=== PATIENT | male | born 1960 | race Caucasian/White ===

== ENCOUNTER → 2016-12-28 | Outpatient (CLI) | payer MEDICARE, MEDICAID | LOC: MW.CHFP 10:54 | PROVIDERS: ATTEND Student in an Organized Health Care Education/Training Program | DX: E78.1 Pure hyperglyceridemia (principal); Z53.9 Procedure and treatment not carried out, unspecified reason; I10 Essential (primary) hypertension | CPT/HCPCS: G0463 ==

== ENCOUNTER → 2016-12-29 | Outpatient (CLI) | payer MEDICARE, MEDICAID | LOC: MW.CHFP 08:59 | PROVIDERS: ATTEND Student in an Organized Health Care Education/Training Program | DX: E78.1 Pure hyperglyceridemia (principal) | CPT/HCPCS: 36415; 80061 ==

== ENCOUNTER 2021-05-07 21:00 | Emergency (ER) | payer MEDICARE ==
[2021-05-07] MEDS ORDERED: Sodium Chloride 0.9% 2.5 ML Syringe FLUSH PRN (21:22)
[2021-05-07] MEDS ORDERED: Sodium Chloride 0.9% 10 ML Syringe FLUSH PRN (21:22)
[2021-05-07] MEDS ORDERED: Sodium Chloride 0.9% 1,000 ML IV ONE (21:22)
[2021-05-07 21:43] LABS: BLOOD UREA NITROGEN,BUN 22 mg/dL (7.0-18.0); CARBON DIOXIDE,CO2 21.4 mmol/L (21.0-32.0); CHLORIDE,CL 107 mmol/L (98-107); GLUCOSE RANDOM 146 mg/dL (74-106); POTASSIUM,K 4.2 mmol/L (3.5-5.1); SODIUM,NA 143 mmol/L (136-148)
--- NOTE | 2021-05-07 22:13 | CR ---
For Patients: As a result of the Cures Act, medical imaging exams and procedure reports are released immediately into your electronic medical record. You may view this report before your referring provider. If you have questions, please contact your health care provider. INDICATION: Syncope TECHNIQUE: Chest radiograph 1 view COMPARISON: None FINDINGS: Moderate degradation of image quality noted due to body habitus. Mediastinum: The mediastinum is normal in appearance. There is a convex density in the right cardiophrenic sulcus noted, likely due to a pericardial fat pad. The heart silhouette is normal in size and morphology. Lung: Both lungs are unremarkable in appearance with small lung volumes. No sign of pleural effusion seen. No pneumothorax is identified. Bone and Soft tissue: Unremarkable for age. IMPRESSION: 1. No acute cardiopulmonary disease is seen. Dictated by Aram Hammond MD @ 05/07/2021 10:11:40 PM Dictated by: Aram Hammond MD @ 05/07/2021 22:11:47 (Electronically Signed)
--- NOTE | 2021-05-07 23:12 | CT ---
For Patients: As a result of the Cures Act, medical imaging exams and procedure reports are released immediately into your electronic medical record. You may view this report before your referring provider. If you have questions, please contact your health care provider. INDICATION: Head injury, confusion TECHNIQUE: CT Head without i.v. contrast. Coronal and sagittal reformats were obtained. COMPARISON: None FINDINGS: CSF space: The ventricles are normal for age. Brain: No evidence of mass, acute infarction or hemorrhage is seen. No mass-effect or midline shift is seen. Moderate cerebellar atrophy is present. The brain parenchyma is otherwise normal in appearance with preservation of the [place]-white matter junction. Calvarium: The visualized paranasal sinuses are well aerated. The mastoid air cells are clear. The visualized orbits are grossly unremarkable. The calvarium is unremarkable in appearance with no fractures identified. IMPRESSION: 1. No evidence of acute infarction, intracranial hemorrhage, or mass-effect seen. Please note that all CT scans at this facility use dose modulation, iterative reconstruction, and/or weight-based dosing when appropriate to reduce radiation dose to as low as reasonably achievable. Dictated by: Aram Hammond MD @ 05/07/2021 23:11:52 (Electronically Signed)
--- NOTE | 2021-05-07 23:23 | EDM.PDOC ---
ED HPI GENERAL MEDICAL PROBLEM - General Chief Complaint: General Stated Complaint: ALTERED MENTAL STATUS Time Seen by Provider: 05/07/21 21:21 - History of Present Illness INITIAL COMMENTS - FREE TEXT/NARRATIVE: HISTORY AND PHYSICAL: History of present illness: This is a 61-year-old gentleman with a history significant for coronary disease, dyslipidemia, bipolar affective disorder who presents ER today by police secondary to patient having confusion and giving them the wrong home address after falling in the parking lot at [facility] and hurting his head. Upon arrival to the ED, the patient the patient reports that he recalls falling at [facility] from tripping on the ground and hitting his head. Patient reports he did not pass out and recalls the injury. After that, the patient reports that he did have some confusion does not recall exactly how he ended up here in the hospital. Patient denies any other complaints at this time. Patient reports she is ambulatory without any pain or discomfort. Patient denies any pain to his lower extremities or upper extremities. Patient does have some pain and discomfort to his left hand from the fall. Review of systems: As per history of present illness and below otherwise all systems reviewed and negative. Past medical history: As per history of present illness and as reviewed below otherwise noncontributory. Surgical history: As per history of present illness and as reviewed below otherwise noncontributory. Social history: No reported history of drug abuse. Family history: As per history of present illness and as reviewed below otherwise noncontributory. Physical exam: This patient was seen and evaluated during the 2019 SARS-CoV-2 novel coronavirus pandemic period. Community viral transmission is ongoing at time of this encounter and the emergency department is operating under pandemic response procedures. Constitutional: Patient is oriented to person, place, and time. Appears well- developed and well-nourished. No distress. HEENT: Moist mucous membranes Head: Normocephalic and atraumatic Eyes: Right eye exhibits no discharge. Left eye exhibits no discharge. No scleral icterus Neck: Normal range of motion. No tracheal deviation present. Cardiovascular: Normal rate and regular rhythm. Pulmonary: Effort normal, no respiratory distress. Abdominal: No distention Musculoskeletal: Normal range of motion Neurologic: Alert and oriented to person, place and time. Skin: [place], warm and dry. Psychiatric: Normal mood and affect. Behavior is normal. Judgment and thought content normal. Nursing note and vital signs have been reviewed Patient has no C-spine T-spine or L-spine tenderness to palpation. Patient has no left upper or right upper quadrant tenderness to palpation. Patient has no crepitus to palpation to the anterior chest wall. Patient is neurologically intact. Patient does not present with any signs or or symptoms that would be consistent with acute intracranial, intra-abdominal, intrathoracic, or long bone injury. All long bones have been palpated and range of motion been performed and there is no evidence of any acute pathology. Patient does have some soft tissue swelling and a superficial abrasion to his left forehead. Patient has had some soft tissue swelling and ecchymosis to his left hand. Diagnostics: CT head no evidence of acute bleed or fracture CBC, CMP within normal limits Urinalysis normal no active infection Therapeutics: NSS x1 L Assessment and plan: This is a 61-year-old gentleman who presents ER today secondary to confusion. It appears that the patient does have some baseline mental health issues and appears to be at baseline currently. Patient does not have his cell phone with him at this time. Patient is alert awake and oriented to person, place, year and month. At this time, I feel that the patient is back to his baseline mentation. Patient has given me his correct address. We will have please assist with verifying that this is truly his address. I have called all the numbers that we have for him and there've been no answers. Patient reports that he has no friends and does not recall any phone numbers of any particular individuals. Patient reports he does have a cell phone but does not have it with him here in the ED. X-ray of left hand shows an irregular border over the fifth metacarpal in 1 view. Patient be placed in a volar splint for comfort. I do not believe that this is an actual fracture as the patient has no tenderness at that specific spot. After long discussion with the patient, I was able to identify his place of residence and place her here in order to assist with discharge. Definitive disposition and diagnosis as appropriate pending reevaluation and review of above. - Related Data Allergies Allergy/AdvReac Type Severity Reaction Status Date / Time phenytoin sodium Allergy Unknown Verified 05/07/21 21:11 [From Dilantin] Home Meds: Home Meds ARIPiprazole [Abilify] 5 mg PO DAILY 10/30/14 [History] Aspirin [[place] Aspirin EC] 81 mg PO DAILY 10/30/14 [History] FLUoxetine HCl [Fluoxetine HCl] 40 mg PO DAILY 10/30/14 [History] Mirtazapine 30 mg PO BEDTIME 10/30/14 [History] Rosuvastatin [Crestor] 20 mg PO DAILY 10/30/14 [History] Past Medical History HEENT History: Reports: None Cardiovascular History: Reports: None Respiratory History: Reports: None Gastrointestinal History: Reports: None Genitourinary History: Reports: None Musculoskeletal History: Reports: None Neurological History: Reports: None Psychiatric History: Reports: Depression Endocrine/Metabolic History: Reports: None Insulin Pump Model and Hand Candy Dipper: None Hematologic History: Reports: None Immunologic History: Reports: None Oncologic (Cancer) History: Reports: None Dermatologic History: Reports: None - Infectious Disease History Infectious Disease History: Reports: None - Past Surgical History Head Surgeries/Procedures: Reports: None Social & Family History - Tobacco Use Second Hand Smoke Exposure: No - Caffeine Use Caffeine Use: Reports: Coffee - Recreational Drug Use Recreational Drug Use: No ED ROS GENERAL - Review of Systems Review Of Systems: See Below ED EXAM, GENERAL - Physical Exam Exam: See Below Course - Vital Signs Last Recorded V/S: Last Vital Signs Temp 98.1 F 05/07/21 21:00 Pulse 91 05/08/21 01:03 Resp 20 05/08/21 01:03 BP 143/76 H 05/08/21 01:03 Pulse Ox 95 05/08/21 01:03 - Orders/Labs/Meds Orders: Active Orders 24 hr Category Date Time Status Chest 1V Frontal [CR] Stat Exams 05/07/21 21:22 Ordered Hand Comp Min 3V Lt [CR] Stat Exams 05/08/21 00:44 Ordered Head wo Cont [CT] Stat Exams 05/07/21 21:24 Ordered CBC WITH AUTO DIFF [HEME] Stat Lab 05/07/21 21:22 Ordered COMPREHENSIVE METABOLIC PN,CMP [CHEM] Stat Lab 05/07/21 21:22 Ordered ETHANOL BLOOD MEDICAL [CHEM] Stat Lab 05/07/21 21:22 Ordered INR,PT,PROTHROMBIN TIME [COAG] Stat Lab 05/07/21 21:22 Ordered TROPONIN I [CHEM] Stat Lab 05/07/21 21:22 Ordered Lactated Ringers [Ringers, Lactated] 1,000 ml Med 05/07/21 23:30 Ordered IV .BOLUS Sodium Chloride 0.9% [Normal Saline] 1,000 ml Med 05/07/21 21:22 Ordered IV .Bolus Sodium Chloride 0.9% [Saline Flush] Med 05/07/21 21:22 Ordered 10 ml FLUSH ASDIRECTED PRN Sodium Chloride 0.9% [Saline Flush] Med 05/07/21 21:22 Ordered 2.5 ml FLUSH ASDIRECTED PRN DME for Discharge [COMM] Stat Ot 05/08/21 01:08 Ordered Saline Lock Insert [OM.PC] Stat Ot 05/07/21 21:22 Ordered Medication Orders Sodium Chloride (Normal Saline) 1,000 mls @ 999 mls/hr IV .Bolus ONE Stop: 05/07/21 22:22 Last Admin: 05/07/21 21:30 Dose: 999 mls/hr Documented by: CARERIC Sodium Chloride (Sodium Chloride 0.9% 10 Ml Syringe) 10 ml FLUSH ASDIRECTED PRN PRN Reason: Keep Vein Open Sodium Chloride (Sodium Chloride 0.9% 2.5 Ml Syringe) 2.5 ml FLUSH ASDIRECTED PRN PRN Reason: Keep Vein Open Labs: Laboratory Tests 05/07/21 05/07/21 05/07/21 Range/Units 21:13 21:13 21:13 WBC 11.33 H (4.0-11.0) K/uL RBC 4.84 (4.50-5.90) M/uL Hgb 15.4 (13.0-17.0) g/dL Hct 44.8 (38.0-50.0) % MCV 92.6 (80.0-98.0) fL MCH 31.8 (27.0-32.0) pg MCHC 34.4 (31.0-37.0) g/dL RDW Std Deviation 44.9 (28.0-62.0) fl RDW Coeff of [place] 13 (11.0-15.0) % Plt Count 224 (150-400) K/uL MPV 12.00 (7.40-12.00) fL Neut % (Auto) 82.8 H (48.0-80.0) % Lymph % (Auto) 11.3 L (16.0-40.0) % [place] % (Auto) 4.5 (0.0-15.0) % Eos % (Auto) 1.1 (0.0-7.0) % Baso % (Auto) 0.3 (0.0-1.5) % Neut # (Auto) 9.4 H (1.4-5.7) K/uL Lymph # (Auto) 1.3 (0.6-2.4) K/uL [place] # (Auto) 0.5 (0.0-0.8) K/uL Eos # (Auto) 0.1 (0.0-0.7) K/uL Baso # (Auto) 0.0 (0.0-0.1) K/uL Nucleated RBC % 0.0 /100WBC Nucleated RBCs # 0 K/uL INR 1.06 Sodium 143 (136-148) mmol/L Potassium 4.2 (3.5-5.1) mmol/L Chloride 107 (98-107) mmol/L Carbon Dioxide 21.4 (21.0-32.0) mmol/L BUN 22 H (7.0-18.0) mg/dL Creatinine 1.8 H (0.8-1.3) mg/dL Est Cr Clr Drug Dosing 41.31 mL/min Estimated GFR (MDRD) 38.8 ml/min Glucose 146 H (74-106) mg/dL Calcium 9.2 (8.5-10.1) mg/dL Total Bilirubin 1.1 H (0.2-1.0) mg/dL AST 25 (15-37) IU/L ALT 28 (14-63) IU/L Alkaline Phosphatase 64 (46-116) U/L Troponin I < 0.050 (0.000-0.056) ng/mL Total Protein 7.3 (6.4-8.2) g/dL Albumin 4.0 (3.4-5.0) g/dL Globulin 3.3 (2.6-4.0) g/dL Albumin/Globulin Ratio 1.2 (0.9-1.6) Urine Color Urine Appearance Urine pH (5.0-8.0) Ur Specific [place] (1.001-1.035) Urine Protein (NEGATIVE) mg/dL Urine Glucose (UA) (NEGATIVE) mg/dL Urine Ketones (NEGATIVE) mg/dL Urine Occult Blood (NEGATIVE) Urine Nitrite (NEGATIVE) Urine Bilirubin (NEGATIVE) Urine Urobilinogen (<2.0) EU/dL Ur Leukocyte Esterase (NEGATIVE) Urine RBC (0-2/HPF) Urine WBC (0-5/HPF) Ur Epithelial Cells (NONE-FEW) Urine Bacteria (NEGATIVE) Urine Mucus (NONE-MOD) Ethyl Alcohol <3 mg/dL 05/07/21 Range/Units 23:27 WBC (4.0-11.0) K/uL RBC (4.50-5.90) M/uL Hgb (13.0-17.0) g/dL Hct (38.0-50.0) % MCV (80.0-98.0) fL MCH (27.0-32.0) pg MCHC (31.0-37.0) g/dL RDW Std Deviation (28.0-62.0) fl RDW Coeff of [place] (11.0-15.0) % Plt Count (150-400) K/uL MPV (7.40-12.00) fL Neut % (Auto) (48.0-80.0) % Lymph % (Auto) (16.0-40.0) % [place] % (Auto) (0.0-15.0) % Eos % (Auto) (0.0-7.0) % Baso % (Auto) (0.0-1.5) % Neut # (Auto) (1.4-5.7) K/uL Lymph # (Auto) (0.6-2.4) K/uL [place] # (Auto) (0.0-0.8) K/uL Eos # (Auto) (0.0-0.7) K/uL Baso # (Auto) (0.0-0.1) K/uL Nucleated RBC % /100WBC Nucleated RBCs # K/uL INR Sodium (136-148) mmol/L Potassium (3.5-5.1) mmol/L Chloride (98-107) mmol/L Carbon Dioxide (21.0-32.0) mmol/L BUN (7.0-18.0) mg/dL Creatinine (0.8-1.3) mg/dL Est Cr Clr Drug Dosing mL/min Estimated GFR (MDRD) ml/min Glucose (74-106) mg/dL Calcium (8.5-10.1) mg/dL Total Bilirubin (0.2-1.0) mg/dL AST (15-37) IU/L ALT (14-63) IU/L Alkaline Phosphatase (46-116) U/L Troponin I (0.000-0.056) ng/mL Total Protein (6.4-8.2) g/dL Albumin (3.4-5.0) g/dL Globulin (2.6-4.0) g/dL Albumin/Globulin Ratio (0.9-1.6) Urine Color YELLOW Urine Appearance SLT CLOUDY Urine pH 5.5 (5.0-8.0) Ur Specific [place] >= 1.030 (1.001-1.035) Urine Protein TRACE H (NEGATIVE) mg/dL Urine Glucose (UA) NEGATIVE (NEGATIVE) mg/dL Urine Ketones TRACE H (NEGATIVE) mg/dL Urine Occult Blood LARGE H (NEGATIVE) Urine Nitrite NEGATIVE (NEGATIVE) Urine Bilirubin NEGATIVE (NEGATIVE) Urine Urobilinogen 0.2 (<2.0) EU/dL Ur Leukocyte Esterase NEGATIVE (NEGATIVE) Urine RBC 10-15 (0-2/HPF) Urine WBC 1-3 (0-5/HPF) Ur Epithelial Cells FEW (NONE-FEW) Urine Bacteria FEW (NEGATIVE) Urine Mucus MODERATE (NONE-MOD) Ethyl Alcohol mg/dL Meds: Medications Generic Name Dose Route Start Last Admin Trade Name Freq PRN Reason Stop Dose Admin Sodium Chloride 1,000 mls @ 999 mls/hr 05/07/21 21:22 05/07/21 21:30 Normal Saline IV 05/07/21 22:22 999 mls/hr .Bolus ONE Administration Sodium Chloride 10 ml 05/07/21 21:22 Sodium Chloride 0.9% 10 Ml Syringe FLUSH ASDIRECTED PRN Keep Vein Open Sodium Chloride 2.5 ml 05/07/21 21:22 Sodium Chloride 0.9% 2.5 Ml Syringe FLUSH ASDIRECTED PRN Keep Vein Open Departure - Departure Time of Disposition: 00:47 Disposition: Home, Self-Care 01 Condition: Good Clinical Impression: Head injury Qualifiers: Encounter type: initial encounter Qualified Code(s): S09.90XA - Unspecified injury of head, initial encounter Hand sprain Qualifiers: Encounter type: initial encounter Laterality: left Qualified Code(s): S63.92XA - Sprain of unspecified part of left wrist and hand, initial encounter - Discharge Information Instructions: Head Injury, Adult Referrals: PCP,None [Primary Care Provider] - Forms: ED Department Discharge Additional Instructions: You were seen and evaluated in the ER today secondary to head injury and some confusion. Please go home and get plenty of rest and call your family doctor in the morning for further evaluation. Please keep the splint in place until you are pain-free. The following information is given to patients seen in the emergency department who are being discharged to home. This information is to outline your options for follow-up care. We provide all patients seen in our emergency department with a follow-up referral. The need for follow-up, as well as the timing and circumstances, are variable depending upon the specifics of your emergency department visit. If you don't have a primary care physician on staff, we will provide you with a referral. We always advise you to contact your personal physician following an emergency department visit to inform them of the circumstance of the visit and for follow-up with them and/or the need for any referrals to a consulting specialist. The emergency department will also refer you to a specialist when appropriate. This referral assures that you have the opportunity for follow-up care with a specialist. All of these measure are taken in an effort to provide you with optimal care, which includes your follow-up. Under all circumstances we always encourage you to contact your private physician who remains a resource for coordinating your care. When calling for follow-up care, please make the office aware that this follow-up is from your recent emergency room visit. If for any reason you are refused follow-up, please contact the [facility] Emergency Department at and asked to speak to the emergency department charge nurse. [facility] - [facility] [address] [place] [id number] [facility] [address] [place] [id number] Sepsis Event Note (ED) - Evaluation Sepsis Screening Result: No Definite Risk - Focused Exam Vital Signs: Vital Signs Temp Pulse Resp BP Pulse Ox 05/08/21 01:03 91 20 143/76 H 95 05/08/21 00:03 85 14 95/75 96 05/07/21 21:00 98.1 F 82 18 116/54 L 95 - My Orders Last 24 Hours: My Active Orders 05/07/21 21:22 Chest 1V Frontal [CR] Stat CBC WITH AUTO DIFF [HEME] Stat COMPREHENSIVE METABOLIC PN,CMP [CHEM] Stat ETHANOL BLOOD MEDICAL [CHEM] Stat INR,PT,PROTHROMBIN TIME [COAG] Stat TROPONIN I [CHEM] Stat Sodium Chloride 0.9% [Normal Saline] 1,000 ml IV .Bolus Sodium Chloride 0.9% [Saline Flush] 10 ml FLUSH ASDIRECTED PRN Sodium Chloride 0.9% [Saline Flush] 2.5 ml FLUSH ASDIRECTED PRN Saline Lock Insert [OM.PC] Stat 05/07/21 21:24 Head wo Cont [CT] Stat 05/07/21 23:30 Lactated Ringers [Ringers, Lactated] 1,000 ml IV .BOLUS 05/08/21 00:44 Hand Comp Min 3V Lt [CR] Stat 05/08/21 01:08 DME for Discharge [COMM] Stat - Assessment/Plan Last 24 Hours: My Active Orders 05/07/21 21:22 Chest 1V Frontal [CR] Stat CBC WITH AUTO DIFF [HEME] Stat COMPREHENSIVE METABOLIC PN,CMP [CHEM] Stat ETHANOL BLOOD MEDICAL [CHEM] Stat INR,PT,PROTHROMBIN TIME [COAG] Stat TROPONIN I [CHEM] Stat Sodium Chloride 0.9% [Normal Saline] 1,000 ml IV .Bolus Sodium Chloride 0.9% [Saline Flush] 10 ml FLUSH ASDIRECTED PRN Sodium Chloride 0.9% [Saline Flush] 2.5 ml FLUSH ASDIRECTED PRN Saline Lock Insert [OM.PC] Stat 05/07/21 21:24 Head wo Cont [CT] Stat 05/07/21 23:30 Lactated Ringers [Ringers, Lactated] 1,000 ml IV .BOLUS 05/08/21 00:44 Hand Comp Min 3V Lt [CR] Stat 05/08/21 01:08 DME for Discharge [COMM] Stat
[2021-05-07] MEDS ORDERED: Lactated Ringers 1,000 ML IV SCH (23:30)
[2021-05-08 01:04] VITALS: BP 143/76; PULSE 91
--- NOTE | 2021-05-08 01:26 | CR ---
For Patients: As a result of the Cures Act, medical imaging exams and procedure reports are released immediately into your electronic medical record. You may view this report before your referring provider. If you have questions, please contact your health care provider. INDICATION: Hand pain TECHNIQUE: Hand radiograph 3 views left COMPARISON: None FINDINGS: Bone: There is suspected cortical discontinuity the radial base of the 5th metacarpal, only seen on the frontal view. There is negative ulnar variance present by up to 4 mm. Joint: The carpal and metacarpal-phalangeal joints are unremarkable in appearance. The interphalangeal joints are normal in appearance. Soft tissue: Unremarkable. No radiopaque foreign bodies are seen. IMPRESSION: 1. There is suspected cortical discontinuity the radial base of the 5th metacarpal, only seen on the frontal view. If there is a history of trauma, correlation with physical exam for focal tenderness in this region is recommended to exclude an acute fracture. Dictated by Aram Hammond MD @ 05/08/2021 1:22:42 AM Dictated by: Aram Hammond MD @ 05/08/2021 01:25:28 (Electronically Signed)
== END 2021-05-08 01:15 | disposition home or self-care (01) ==
LOC: MW.ED 21:00
DX: S63.92XA Sprain of unspecified part of left wrist and hand, initial encounter (principal); S09.90XA Unspecified injury of head, initial encounter; I25.10 Atherosclerotic heart disease of native coronary artery without angina pectoris; E87.5 Hyperkalemia; Z79.899 Other long term (current) drug therapy; Z88.8 Allergy status to other drugs, medicaments and biological substances; Z79.82 Long term (current) use of aspirin; W18.09XA Striking against other object with subsequent fall, initial encounter
CPT/HCPCS: 36415; 70450; 71045; 73130; 80053; 80307; 81001; 84484; 85025; 85610; 99285; J7030; J7120

== ENCOUNTER 2021-06-08 17:16 | Inpatient (IN) | payer MEDICARE ==
--- NOTE | 2021-06-08 17:34 | PCM.EKG ---
#1 Interpretation Time: 17:34 EKG Interpretation Comments: 74, normal sinus rhythm, nonspecific ST/T findings
[2021-06-08] MEDS ORDERED: Sodium Chloride 0.9% 1,000 ML IV ONE (17:39)
[2021-06-08] MEDS ORDERED: Diphtheria,Pertussis(Acell),Tetanus Vaccine 0.5 ML Syringe IM ONE (17:40)
[2021-06-08 17:48] LABS: CHLORIDE,CL 106 mmol/L (98-107); POTASSIUM,K 4.6 mmol/L (3.5-5.1); SODIUM,NA 142 mmol/L (136-148)
[2021-06-08 18:04] LABS: BLOOD UREA NITROGEN,BUN 26 mg/dL (7.0-18.0); CARBON DIOXIDE,CO2 24.5 mmol/L (21.0-32.0); GLUCOSE RANDOM 103 mg/dL (74-106)
--- NOTE | 2021-06-08 18:31 | EDM.PDOC ---
ED HPI GENERAL MEDICAL PROBLEM - General Chief Complaint: Cardiovascular Problem Stated Complaint: FALL Time Seen by Provider: 06/08/21 17:22 Source of Information: Reports: Patient History Limitations: Reports: No Limitations - History of Present Illness INITIAL COMMENTS - FREE TEXT/NARRATIVE: HISTORY AND PHYSICAL: History of present illness: Patient is a 61-year-old male who presents emergency room today via EMS for concern of fall. Patient states that he was outside walking and was starting to walk up to his door and states that he started tripping over his feet and could not catch himself. Patient states that he hit his top lip on the cement concrete. Patient states that he did not lose consciousness and was not dizzy preceding the fall. Patient states that he has had a fall like this before approximately 1 month ago and was "told it was fine "after he had a evaluated prior. Patient states that he is not up-to-date on his tetanus and would like to update this today. Patient states he has a history of bipolar disorder but denies any other health history. Patient states other than his upper lip, he has no complaints at this time. Patient denies fever, chills, chest pain, shortness of breath, or cough. Denies headache, neck stiff ness, change in vision, syncope, or near syncope. Denies nausea, vomiting, abdominal pain, diarrhea, constipation, or dysuria. Has not noted any blood in urine or stool. Patient has been eating and drinking appropriately. Review of systems: As per history of present illness and below otherwise all systems reviewed and negative. Past medical history: As per history of present illness and as reviewed below otherwise noncontributory. Surgical history: As per history of present illness and as reviewed below otherwise noncontributory. Social history: See social history for further information Family history: As per history of present illness and as reviewed below otherwise noncontributory. Physical exam: Patient was placed in cervical collar via EMS prior to arrival to the emergency room. General: Patient is alert, oriented, and in no acute distress. Patient sitting comfortably on exam table. Vitals stable and reviewed by me. HEENT: Patient does have a upper lip abrasion. Patient does have some ecchymosis noted of the left cheek. Otherwise, atraumatic, normocephalic, pupils equal and reactive bilaterally, negative for conjunctival pallor or scleral icterus, mucous membranes moist, TMs normal bilaterally, throat clear, neck supple, nontender, trachea midline. No drooling or trismus noted. No meningeal signs. No hot potato voice noted. Lungs: Clear to auscultation, breath sounds equal bilaterally, chest nontender. Heart: S1S2, regular rate and rhythm without overt murmur Abdomen: Soft, nondistended, nontender. Negative for masses or hepatosplenomegaly. Negative for costovertebral tenderness. Pelvis: Stable nontender. Genitourinary: Deferred. Rectal: Deferred. Skin: Intact, warm, dry. No lesions or rashes noted. Extremities/musculoskeletal: No obvious deformity of the complete spine. No step-offs, or crepitus to palpation of the complete spine. Patient does have an area of mild to tenderness of the middle cervical spine. Patient does have some superficial nonbleeding abrasions of bilateral knees without ecchymosis. Otherwise, atraumatic, negative for cords or calf pain. Neurovascular unremarkable. Neuro: Awake, alert, oriented. Cranial nerves II through XII unremarkable. Cerebellum unremarkable. Motor and sensory unremarkable throughout. Exam nonfocal. Notes: Patient is a 61-year-old male who presents emergency room today via EMS secondary to fall that occurred just prior to arrival from standing height. Upon arrival to the ED, patient is vitally stable and otherwise well-appearing on exam. Patient was placed in a cervical collar via EMS. Patient does have some mild mid cervical tenderness on exam so we will keep patient in cervical collar until imaging results. Patient does have an abrasion to his top lip which at this time is not actively bleeding. Due to cervical collar, unable to fully assess this at this time, with plan to reassess after clearing of the cervical spine. Will update patient's tetanus today. Will also obtain cardiac evaluation as this is an outpatient second fall in [address] Enriquez's dictation for specific EKG interpretation. However, normal sinus rhythm without STEMI. Mild derangements of CBC is unremarkable. CMP shows an elevation of creatinine at 1.6 (in comparison to prior, appears baseline) and elevation of BUN of 26, in comparison to prior lab work also appears baseline) otherwise CMP is unremarkable. Troponin is negative. Urinalysis of clear of infection. Covid negative. Pelvic x-ray shows no acute osseous injury or abnormality noted. Chest x-ray shows no acute cardiopulmonary process. Head CT shows stable head CT with no acute disease. Mild cerebral and moderate cerebellar atrophy. CT neck shows mild to moderate degenerative changes in the cervical spine without acute fracture or subluxation. Loss of the cervical lordosis could be related to cervical spasm. I did remove cervical collar after CT showed no acute findings. I was able to cleanse patient's abrasions of his face and further assess these. Patient does have a small skin tear of his upper lip with edema of his upper lip. He does have a small laceration on the inside of his lip that is not through and through and is approximately 3 mm. Teeth are intact without fractures. Patient does not have any facial lacerations that are able to be repaired today. These areas were cleaned with normal saline and disinfected with chlorhexidine. After removal of cervical collar, I did try to see if patient could ambulate. Patient was able to ambulate but is unsteady on his feet. He does take small shuffling steps and does lose balance when trying to turn and I do study him before falling and walking back to his bed. I did thoroughly discussed patient's progressive difficulties with walking. Patient does live alone and does not have anybody to assist him with walking and does not feel he can properly use a walker to get around. I did call and speak to neurologist on-call for [facility] day not, Dr. Ambriz, and thoroughly discussed patient's case. He does feel as if think patient needs to be transferred I did call and speak to hospitalist weight loss sales consultant, Dr. June and thoroughly discussed patients case. Will admit patient's inpatient to Dr. June Voices understanding and is agreeable to plan of care. Denies any further questions or concerns at this time. Diagnostics: EKG, CBC, CMP, troponin, head CT without contrast, neck CT without contrast, 1 view chest x-ray, pelvic x-ray Therapeutics: Saline lock, Tdap Impression: Neurodegenerative disorder with severe ataxia Superficial abrasions, facial Skin tear, left upper lip Fall risk Plan: Admit to inpatient to Dr. June Definitive disposition and diagnosis as appropriate pending reevaluation and review of above. - Related Data Allergies Allergy/AdvReac Type Severity Reaction Status Date / Time phenytoin sodium Allergy Unknown Verified 06/08/21 21:22 [From Dilantin] Home Meds: Home Meds ARIPiprazole [Abilify] 5 mg PO DAILY 10/30/14 [History] Aspirin [[place] Aspirin EC] 81 mg PO DAILY 10/30/14 [History] FLUoxetine HCl [Fluoxetine HCl] 40 mg PO DAILY 10/30/14 [History] Mirtazapine 30 mg PO BEDTIME 10/30/14 [History] Rosuvastatin [Crestor] 20 mg PO DAILY 10/30/14 [History] Past Medical History HEENT History: Reports: None Cardiovascular History: Reports: None Respiratory History: Reports: None Gastrointestinal History: Reports: None Genitourinary History: Reports: None Musculoskeletal History: Reports: None Neurological History: Reports: None Psychiatric History: Reports: Depression Endocrine/Metabolic History: Reports: None Insulin Pump Model and Hogshead Packer: None Hematologic History: Reports: None Immunologic History: Reports: None Oncologic (Cancer) History: Reports: None Dermatologic History: Reports: None - Infectious Disease History Infectious Disease History: Reports: None - Past Surgical History Head Surgeries/Procedures: Reports: None Social & Family History - Caffeine Use Caffeine Use: Reports: Coffee ED ROS GENERAL - Review of Systems Review Of Systems: Comprehensive ROS is negative, except as noted in HPI. ED EXAM, GENERAL - Physical Exam Exam: See Below (see dictation) Course - Vital Signs Last Recorded V/S: Last Vital Signs Temp 97.5 F 06/08/21 23:15 Pulse 67 06/08/21 23:15 Resp 16 06/08/21 23:15 BP 135/60 06/08/21 23:15 Pulse Ox 95 06/08/21 23:15 - Orders/Labs/Meds Orders: Active Orders 24 hr Category Date Time Status Admission Status [Patient Status] [ADT] Stat ADT 06/08/21 20:14 Active Cardiac Monitoring [RC] . DIRECTED Care 06/08/21 17:39 Active Vaccines to be Administered [RC] PER UNIT ROUTINE Care 06/08/21 17:40 Active Labs: Laboratory Tests 06/08/21 06/08/21 06/08/21 Range/Units 17:15 17:15 19:30 WBC 6.69 (4.0-11.0) K/uL RBC 4.72 (4.50-5.90) M/uL Hgb 14.8 (13.0-17.0) g/dL Hct 44.9 (38.0-50.0) % MCV 95.1 (80.0-98.0) fL MCH 31.4 (27.0-32.0) pg MCHC 33.0 (31.0-37.0) g/dL RDW Std Deviation 47.0 (28.0-62.0) fl RDW Coeff of Marley 14 (11.0-15.0) % Plt Count 206 (150-400) K/uL MPV 12.20 H (7.40-12.00) fL Neut % (Auto) 60.9 (48.0-80.0) % Lymph % (Auto) 26.5 (16.0-40.0) % [place] % (Auto) 8.8 (0.0-15.0) % Eos % (Auto) 3.4 (0.0-7.0) % Baso % (Auto) 0.4 (0.0-1.5) % Neut # (Auto) 4.1 (1.4-5.7) K/uL Lymph # (Auto) 1.8 (0.6-2.4) K/uL [place] # (Auto) 0.6 (0.0-0.8) K/uL Eos # (Auto) 0.2 (0.0-0.7) K/uL Baso # (Auto) 0.0 (0.0-0.1) K/uL Nucleated RBC % 0.0 /100WBC Nucleated RBCs # 0 K/uL Sodium 142 (136-148) mmol/L Potassium 4.6 (3.5-5.1) mmol/L Chloride 106 (98-107) mmol/L Carbon Dioxide 24.5 (21.0-32.0) mmol/L BUN 26 H (7.0-18.0) mg/dL Creatinine 1.6 H (0.8-1.3) mg/dL Est Cr Clr Drug Dosing 46.48 mL/min Estimated GFR (MDRD) 44.5 ml/min Glucose 103 (74-106) mg/dL Calcium 8.6 (8.5-10.1) mg/dL Total Bilirubin 0.6 (0.2-1.0) mg/dL AST 24 (15-37) IU/L ALT 23 (14-63) IU/L Alkaline Phosphatase 58 (46-116) U/L Troponin I < 0.050 (0.000-0.056) ng/mL Total Protein 6.8 (6.4-8.2) g/dL Albumin 3.6 (3.4-5.0) g/dL Globulin 3.2 (2.6-4.0) g/dL Albumin/Globulin Ratio 1.1 (0.9-1.6) SARS-CoV-2 RNA (МАРИЯ) NEGATIVE (NEGATIVE) Meds: Medications Discontinued Medications Generic Name Dose Route Start Last Admin Trade Name Mai PRN Reason Stop Dose Admin Diphtheria/Tetanus/Acell Pertussis 0.5 ml 06/08/21 17:40 06/08/21 18:23 Diphtheria,Pertussis(Acell),Tetanus Vaccine 0.5 Ml Syringe IM 06/08/21 17:41 0.5 ml .ONCE ONE Administration Sodium Chloride 1,000 mls @ 999 mls/hr 06/08/21 17:39 06/08/21 18:20 Normal Saline IV 06/08/21 18:39 999 mls/hr BOLUS ONE Administration Departure - Departure Time of Disposition: 23:25 Disposition: Admitted As Inpatient 68 Clinical Impression: Neuro-degenerative disorders, Ataxia, Superficial abrasion, Skin tear - Discharge Information Sepsis Event Note (ED) - Evaluation Sepsis Screening Result: No Definite Risk - Focused Exam Vital Signs: Vital Signs Temp Pulse Resp BP Pulse Ox 06/08/21 20:00 97.3 F 71 18 128/72 95 06/08/21 17:20 97.3 F 73 18 149/67 H 93 L - My Orders Last 24 Hours: My Active Orders 06/08/21 17:39 Cardiac Monitoring [RC] . DIRECTED 06/08/21 17:40 Vaccines to be Administered [RC] PER UNIT ROUTINE 06/08/21 20:14 Admission Status [Patient Status] [ADT] Stat - Assessment/Plan Last 24 Hours: My Active Orders 06/08/21 17:39 Cardiac Monitoring [RC] . DIRECTED 06/08/21 17:40 Vaccines to be Administered [RC] PER UNIT ROUTINE 06/08/21 20:14 Admission Status [Patient Status] [ADT] Stat
--- NOTE | 2021-06-08 18:44 | CR ---
INDICATION: pelvis injury from fall, patient has unsteady gait for 1 month, stumbled forward and fall on face TECHNIQUE: Pelvis radiograph 2 views COMPARISON: None FINDINGS: The sensitivity and specificity of the exam are moderately limited by the patient`s body habitus. Bone: No acute fractures or aggressive bone lesions are identified. Joint: Mild to moderate hip osteoarthritis is noted bilaterally. The visualized sacroiliac joints are unremarkable in appearance. The pubic symphysis is normal in appearance. Soft tissue: Unremarkable. The visualized bowel gas pattern of the pelvis is unremarkable in appearance. No radiopaque foreign bodies are seen. IMPRESSION: 1. No acute osseous injuries or abnormalities are noted. Dictated by Aram Hammnod MD @ 06/08/2021 6:43:42 PM Dictated by: Aram Hammond MD @ 06/08/2021 18:43:54 (Electronically Signed)
--- NOTE | 2021-06-08 18:44 | CR ---
INDICATION: chest injury from fall, patient has unsteady gait for 1 month, stumbled forward and fall on face TECHNIQUE: Chest radiograph 1 view COMPARISON: 05/07/2021 FINDINGS: The sensitivity and specificity of the exam are moderately limited by the patient`s body habitus. Mediastinum: The mediastinum is normal in appearance. The heart silhouette is normal in size and morphology. Lung: Both lungs are unremarkable in appearance. No sign of pleural effusion seen. No pneumothorax is identified. Bone and Soft tissue: Unremarkable for age. IMPRESSION: 1. No acute cardiopulmonary disease is seen. Dictated by: Aram Hammond MD @ 06/08/2021 18:43:11 (Electronically Signed)
--- NOTE | 2021-06-08 19:01 | CT ---
INDICATION: Patient fell today. Unsteady gait for 1 month. Stumbled forward and fell on ice. TECHNIQUE: CT head without IV contrast. COMPARISON: CT head 05/07/2021. FINDINGS: No intracranial hemorrhage, edema, or mass effect. Mild cerebral and moderate cerebellar atrophy with prominence of the cisterna magnum stable. Remainder negative. IMPRESSION: Stable head CT with no acute disease. Mild cerebral and moderate cerebellar atrophy. Please note that all CT scans at this facility use dose modulation, iterative reconstruction, and/or weight-based dosing when appropriate to reduce radiation dose to as low as reasonably achievable. Dictated by Cristian Moulton MD @ 06/08/2021 7:00:[address] Cristian Moulton @ Jun 08 2021 7:00PM
--- NOTE | 2021-06-08 19:07 | CT ---
INDICATION: Patient fell today. Unsteady gait for 1 month. Stumbled forward and fell on ice. TECHNIQUE: CT cervical spine without IV contrast including axial, coronal and sagittal images. FINDINGS: Moderate to prominent interspace narrowing C4 through C6. Mild to moderate interspace narrowing of C7 and T1. Mild interspace narrowing of T2. Mild hypertrophic changes in the cervical spine. No acute fracture or subluxation in cervical spine. Loss of the cervical lordosis may be related to cervical spasm. Mild prominence in the mid and upper neck likely reactive in nature. Remainder negative. IMPRESSION: Mild to moderate degenerative changes in the cervical spine without acute fracture or subluxation. Loss of the cervical lordosis could be related to cervical spasm. Other findings as above. Please note that all CT scans at this facility use dose modulation, iterative reconstruction, and/or weight-based dosing when appropriate to reduce radiation dose to as low as reasonably achievable. Dictated by Cristian Moulton MD @ 06/08/2021 7:06:[address] Cristian Moulton @ Jun 08 2021 7:06PM
--- NOTE | 2021-06-08 22:55 | PCM.HP.2 ---
H&P History of Present Illness - General Date of Service: 06/08/21 Admit Problem/Dx: Admission Diagnosis/Problem Admission Diagnosis/Problem Ataxia - History of Present Illness Initial Comments - Free Text/Narative: 61 yo male who presents to the ED after a fall. He has been falling at home. He reports his legs give way and he starts to run to keep stable which eventual causes him to fall. He did fall on his face. In the ED he was noted to have several abrasions on his upper lip. He does reports some light headed and dizziness but denies any weakness or balance issues. ED provider noted that he was unsteady in his gait and felt it was unsafe to discharge him home. - Related Data Allergies/Adverse Reactions: Allergies Allergy/AdvReac Type Severity Reaction Status Date / Time phenytoin sodium Allergy Unknown Verified 06/08/21 21:22 [From Dilantin] Home Medications: Home Meds ARIPiprazole [Abilify] 5 mg PO DAILY 10/30/14 [History] Aspirin [[place] Aspirin EC] 81 mg PO DAILY 10/30/14 [History] FLUoxetine HCl [Fluoxetine HCl] 40 mg PO DAILY 10/30/14 [History] Mirtazapine 30 mg PO BEDTIME 10/30/14 [History] Rosuvastatin [Crestor] 20 mg PO DAILY 10/30/14 [History] Past Medical History HEENT History: Reports: None Cardiovascular History: Reports: None Respiratory History: Reports: None Gastrointestinal History: Reports: None Genitourinary History: Reports: None Musculoskeletal History: Reports: None Neurological History: Reports: None Psychiatric History: Reports: Depression Endocrine/Metabolic History: Reports: None Insulin Pump Model and [employer] Director: None Hematologic History: Reports: None Immunologic History: Reports: None Oncologic (Cancer) History: Reports: None Dermatologic History: Reports: None - Infectious Disease History Infectious Disease History: Reports: None - Past Surgical History Head Surgeries/Procedures: Reports: None Social & Family History - Tobacco Use Tobacco Use Status *Q: Never Tobacco User Second Hand Smoke Exposure: No - Caffeine Use Caffeine Use: Reports: None - Recreational Drug Use Recreational Drug Use: No H&P Review of Systems - Review of Systems: Review Of Systems: Comprehensive ROS is negative, except as noted in HPI. Exam - Exam Exam: See Below - Vital Signs Vital Signs: Last Vital Signs Temp 36.2 C 06/08/21 21:15 Pulse 62 06/08/21 21:15 Resp 16 06/08/21 21:15 BP 138/64 06/08/21 22:00 Pulse Ox 96 06/08/21 21:15 Weight: 100.924 kg - Exam General: Alert, Oriented HEENT: Mucosa Moist & [place] Neck: Supple Lungs: Clear to Auscultation, Normal Respiratory Effort Cardiovascular: Regular Rate, Regular Rhythm GI/Abdominal Exam: Normal Bowel Sounds, Soft, Non-Tender Extremities: Non-Tender, No Pedal Edema Skin: Warm, Dry, Intact Neurological: Cranial Nerves Intact, Reflexes Equal Bilateral, Strength Equal Bilateral, Sensation Intact, Abnormal Gait (wide based gait), Other (finger past pointing) - Patient Data Lab Results Last 24 hrs: Laboratory Results - last 24 hr 06/08/21 06/08/21 06/08/21 Range/Units 17:15 17:15 19:30 WBC 6.69 (4.0-11.0) K/uL RBC 4.72 (4.50-5.90) M/uL Hgb 14.8 (13.0-17.0) g/dL Hct 44.9 (38.0-50.0) % MCV 95.1 (80.0-98.0) fL MCH 31.4 (27.0-32.0) pg MCHC 33.0 (31.0-37.0) g/dL RDW Std Deviation 47.0 (28.0-62.0) fl RDW Coeff of Marley 14 (11.0-15.0) % Plt Count 206 (150-400) K/uL MPV 12.20 H (7.40-12.00) fL Neut % (Auto) 60.9 (48.0-80.0) % Lymph % (Auto) 26.5 (16.0-40.0) % [place] % (Auto) 8.8 (0.0-15.0) % Eos % (Auto) 3.4 (0.0-7.0) % Baso % (Auto) 0.4 (0.0-1.5) % Neut # (Auto) 4.1 (1.4-5.7) K/uL Lymph # (Auto) 1.8 (0.6-2.4) K/uL [place] # (Auto) 0.6 (0.0-0.8) K/uL Eos # (Auto) 0.2 (0.0-0.7) K/uL Baso # (Auto) 0.0 (0.0-0.1) K/uL Nucleated RBC % 0.0 /100WBC Nucleated RBCs # 0 K/uL Sodium 142 (136-148) mmol/L Potassium 4.6 (3.5-5.1) mmol/L Chloride 106 (98-107) mmol/L Carbon Dioxide 24.5 (21.0-32.0) mmol/L BUN 26 H (7.0-18.0) mg/dL Creatinine 1.6 H (0.8-1.3) mg/dL Est Cr Clr Drug Dosing 46.48 mL/min Estimated GFR (MDRD) 44.5 ml/min Glucose 103 (74-106) mg/dL Calcium 8.6 (8.5-10.1) mg/dL Total Bilirubin 0.6 (0.2-1.0) mg/dL AST 24 (15-37) IU/L ALT 23 (14-63) IU/L Alkaline Phosphatase 58 (46-116) U/L Troponin I < 0.050 (0.000-0.056) ng/mL Total Protein 6.8 (6.4-8.2) g/dL Albumin 3.6 (3.4-5.0) g/dL Globulin 3.2 (2.6-4.0) g/dL Albumin/Globulin Ratio 1.1 (0.9-1.6) Urine Color Urine Appearance Urine pH (5.0-8.0) Ur Specific [place] (1.001-1.035) Urine Protein (NEGATIVE) mg/dL Urine Glucose (UA) (NEGATIVE) mg/dL Urine Ketones (NEGATIVE) mg/dL Urine Occult Blood (NEGATIVE) Urine Nitrite (NEGATIVE) Urine Bilirubin (NEGATIVE) Urine Urobilinogen (<2.0) EU/dL Ur Leukocyte Esterase (NEGATIVE) Urine RBC (0-2/HPF) Urine WBC (0-5/HPF) Ur Epithelial Cells (NONE-FEW) Urine Bacteria (NEGATIVE) Urine Mucus (NONE-MOD) SARS-CoV-2 RNA (МАРИЯ) NEGATIVE (NEGATIVE) 06/08/21 Range/Units 21:30 WBC (4.0-11.0) K/uL RBC (4.50-5.90) M/uL Hgb (13.0-17.0) g/dL Hct (38.0-50.0) % MCV (80.0-98.0) fL MCH (27.0-32.0) pg MCHC (31.0-37.0) g/dL RDW Std Deviation (28.0-62.0) fl RDW Coeff of [place]ley (11.0-15.0) % Plt Count (150-400) K/uL MPV (7.40-12.00) fL Neut % (Auto) (48.0-80.0) % Lymph % (Auto) (16.0-40.0) % [place] % (Auto) (0.0-15.0) % Eos % (Auto) (0.0-7.0) % Baso % (Auto) (0.0-1.5) % Neut # (Auto) (1.4-5.7) K/uL Lymph # (Auto) (0.6-2.4) K/uL [place] # (Auto) (0.0-0.8) K/uL Eos # (Auto) (0.0-0.7) K/uL Baso # (Auto) (0.0-0.1) K/uL Nucleated RBC % /100WBC Nucleated RBCs # K/uL Sodium (136-148) mmol/L Potassium (3.5-5.1) mmol/L Chloride (98-107) mmol/L Carbon Dioxide (21.0-32.0) mmol/L BUN (7.0-18.0) mg/dL Creatinine (0.8-1.3) mg/dL Est Cr Clr Drug Dosing mL/min Estimated GFR (MDRD) ml/min Glucose (74-106) mg/dL Calcium (8.5-10.1) mg/dL Total Bilirubin (0.2-1.0) mg/dL AST (15-37) IU/L ALT (14-63) IU/L Alkaline Phosphatase (46-116) U/L Troponin I (0.000-0.056) ng/mL Total Protein (6.4-8.2) g/dL Albumin (3.4-5.0) g/dL Globulin (2.6-4.0) g/dL Albumin/Globulin Ratio (0.9-1.6) Urine Color YELLOW Urine Appearance CLEAR Urine pH 6.0 (5.0-8.0) Ur Specific [place] 1.025 (1.001-1.035) Urine Protein NEGATIVE (NEGATIVE) mg/dL Urine Glucose (UA) NEGATIVE (NEGATIVE) mg/dL Urine Ketones NEGATIVE (NEGATIVE) mg/dL Urine Occult Blood SMALL H (NEGATIVE) Urine Nitrite NEGATIVE (NEGATIVE) Urine Bilirubin NEGATIVE (NEGATIVE) Urine Urobilinogen 0.2 (<2.0) EU/dL Ur Leukocyte Esterase NEGATIVE (NEGATIVE) Urine RBC NONE SEEN (0-2/HPF) Urine WBC 0-1 (0-5/HPF) Ur Epithelial Cells RARE (NONE-FEW) Urine Bacteria FEW (NEGATIVE) Urine Mucus LIGHT (NONE-MOD) SARS-CoV-2 RNA (МАРИЯ) (NEGATIVE) Result Diagrams: 06/08/21 17:15 06/08/21 17:15 Sepsis Event Note - Evaluation Sepsis Screening Result: No Definite Risk - Focused Exam Vital Signs: Vital Signs Temp Pulse Resp BP Pulse Ox 06/08/21 22:00 138/64 06/08/21 21:15 36.2 C 62 16 153/73 H 96 06/08/21 20:00 36.3 C 71 18 128/72 95 06/08/21 17:20 36.3 C 73 18 149/67 H 93 L Problem List Initiated/Reviewed/Updated: Yes Orders Last 24hrs: Active Orders 24 hr Category Date Time Status Admission Status [Patient Status] [ADT] Stat ADT 06/08/21 20:14 Active Cardiac Monitoring [RC] . DIRECTED Care 06/08/21 17:39 Active Vaccines to be Administered [RC] PER UNIT ROUTINE Care 06/08/21 17:40 Active Assessment/Plan Comment:: 61 yo male admitted for ataxia with concern for possible movement disorder. We consider consulting Dr. Alcaraz to help with neuro work up. Will consult Physical therapy. Will call pharmacy to help with medication reconciliation.
[2021-06-09 07:02] LABS: CARBON DIOXIDE,CO2 24.9 mmol/L (21.0-32.0); POTASSIUM,K 3.6 mmol/L (3.5-5.1)
[2021-06-09] MEDS ORDERED: Gadobenate Dimeglumine 529 MG/ML 20 ML SDV IVPUSH STA (07:22)
--- NOTE | 2021-06-09 08:18 | MR ---
indication: Ataxia, Falls Technique: Multiplanar, multisequence MR images of the brain were obtained before and after the administration of intravenous gadolinium. 20 cc MultiHance intravenous gadolinium Comparison: CT head June 08, 2021 Findings: On midline sagittal T1 images there are preserved flow voids and sagittal sinuses. The corpus callosum is preserved in signal and contour. The pituitary gland is unremarkable without evidence of remodeling of the sella turcica. There is moderate to severe atrophy of the cerebellar hemispheres disproportionate to degree of supratentorial cortical atrophy. Otherwise, there is no evidence of cerebellar tonsillar ectopia. On diffusion-weighted sequences, there is no evidence of acute or subacute infarct. On blood sensitive sequences, there is no evidence of or chronic hemorrhage. There is mild global cortical atrophy somewhat greater than expected for age and with marked atrophy of the bilateral cerebellar hemispheres disproportionate to degree of supratentorial atrophic changes. There is mild colpocephaly lateral ventricles. There is mild to moderate chronic small vessel disease change within the subcortical and periventricular white matter. The remaining brain parenchyma is otherwise preserved in signal intensity. There is no evidence of abnormal contrast enhancement. The flow voids at the skull base are unremarkable. The orbits and their contents are within normal limits. There is minimal mucosal thickening seen within the paranasal sinuses. The mastoid air cells are clear. Impression: Demonstration of mild global supratentorial cortical atrophy somewhat greater than expected for age with marked bilateral cerebellar hemisphere atrophic changes which can be associated with ataxia. This finding can be idiopathic in nature or associated with chronic antiseizure medication administration and/or longstanding ETOH abuse. Correlate with clinical history. Otherwise, no acute intracranial abnormality is appreciated. Dictated by Gulshan De Paz MD @ 06/09/2021 8:16:[address] Gulshan De Paz @ Jun 09 2021 8:16AM
--- NOTE | 2021-06-09 11:08 | PCM.PN ---
- General Info Date of Service: 06/09/21 Admission Dx/Problem (Free Text): Admission Diagnosis/Problem Admission Diagnosis/Problem Ataxia Subjective Update: Reports he continues to have difficulty ambulating but it is much improved with walker. Denies any chest pain shortness of breath or abdominal pain. No other concerns Functional Status: Reports: Pain Controlled, Tolerating Diet, Ambulating (With walker and assistance), Urinating - Review of Systems General: Reports: Weakness, Fatigue HEENT: Reports: No Symptoms. Denies: Headaches, Sore Throat, Visual Changes Pulmonary: Reports: No Symptoms. Denies: Shortness of Breath Cardiovascular: Reports: No Symptoms. Denies: Chest Pain Gastrointestinal: Reports: No Symptoms. Denies: Abdominal Pain, Nausea, Vomiting Genitourinary: Reports: No Symptoms. Denies: Dysuria, Frequency, Burning Musculoskeletal: Reports: No Symptoms Skin: Reports: No Symptoms Neurological: Reports: Difficulty Walking Psychiatric: Reports: No Symptoms - Patient Data Vitals - Most Recent: Last Vital Signs Temp 97.1 F 06/09/21 08:24 Pulse 62 06/09/21 08:24 Resp 16 06/09/21 08:24 BP 129/62 06/09/21 08:24 Pulse Ox 95 06/09/21 08:24 Weight - Most Recent: 100.924 kg I&O - Last 24 Hours: Intake & Output 06/08/21 06/09/21 06/09/21 22:59 06:59 14:59 Intake Total 100 Output Total 700 Balance -600 Lab Results Last 24 Hours: Laboratory Results - last 24 hr 06/08/21 06/08/21 06/08/21 Range/Units 17:15 17:15 19:30 WBC 6.69 (4.0-11.0) K/uL RBC 4.72 (4.50-5.90) M/uL Hgb 14.8 (13.0-17.0) g/dL Hct 44.9 (38.0-50.0) % MCV 95.1 (80.0-98.0) fL MCH 31.4 (27.0-32.0) pg MCHC 33.0 (31.0-37.0) g/dL RDW Std Deviation 47.0 (28.0-62.0) fl RDW Coeff of [place] 14 (11.0-15.0) % Plt Count 206 (150-400) K/uL MPV 12.20 H (7.40-12.00) fL Neut % (Auto) 60.9 (48.0-80.0) % Lymph % (Auto) 26.5 (16.0-40.0) % Story % (Auto) 8.8 (0.0-15.0) % Eos % (Auto) 3.4 (0.0-7.0) % Baso % (Auto) 0.4 (0.0-1.5) % Neut # (Auto) 4.1 (1.4-5.7) K/uL Lymph # (Auto) 1.8 (0.6-2.4) K/uL Story # (Auto) 0.6 (0.0-0.8) K/uL Eos # (Auto) 0.2 (0.0-0.7) K/uL Baso # (Auto) 0.0 (0.0-0.1) K/uL Nucleated RBC % 0.0 /100WBC Nucleated RBCs # 0 K/uL Sodium 142 (136-148) mmol/L Potassium 4.6 (3.5-5.1) mmol/L Chloride 106 (98-107) mmol/L Carbon Dioxide 24.5 (21.0-32.0) mmol/L BUN 26 H (7.0-18.0) mg/dL Creatinine 1.6 H (0.8-1.3) mg/dL Est Cr Clr Drug Dosing 46.48 mL/min Estimated GFR (MDRD) 44.5 ml/min Glucose 103 (74-106) mg/dL Calcium 8.6 (8.5-10.1) mg/dL Total Bilirubin 0.6 (0.2-1.0) mg/dL AST 24 (15-37) IU/L ALT 23 (14-63) IU/L Alkaline Phosphatase 58 (46-116) U/L Troponin I < 0.050 (0.000-0.056) ng/mL Total Protein 6.8 (6.4-8.2) g/dL Albumin 3.6 (3.4-5.0) g/dL Globulin 3.2 (2.6-4.0) g/dL Albumin/Globulin Ratio 1.1 (0.9-1.6) Urine Color Urine Appearance Urine pH (5.0-8.0) Ur Specific [place] (1.001-1.035) Urine Protein (NEGATIVE) mg/dL Urine Glucose (UA) (NEGATIVE) mg/dL Urine Ketones (NEGATIVE) mg/dL Urine Occult Blood (NEGATIVE) Urine Nitrite (NEGATIVE) Urine Bilirubin (NEGATIVE) Urine Urobilinogen (<2.0) EU/dL Ur Leukocyte Esterase (NEGATIVE) Urine RBC (0-2/HPF) Urine WBC (0-5/HPF) Ur Epithelial Cells (NONE-FEW) Urine Bacteria (NEGATIVE) Urine Mucus (NONE-MOD) SARS-CoV-2 RNA (МАРИЯ) NEGATIVE (NEGATIVE) 06/08/21 06/09/21 06/09/21 Range/Units 21:30 05:10 05:10 WBC 6.29 (4.0-11.0) K/uL RBC 4.42 L (4.50-5.90) M/uL Hgb 13.6 (13.0-17.0) g/dL Hct 41.6 (38.0-50.0) % MCV 94.1 (80.0-98.0) fL MCH 30.8 (27.0-32.0) pg MCHC 32.7 (31.0-37.0) g/dL RDW Std Deviation 46.4 (28.0-62.0) fl RDW Coeff of [place] 13 (11.0-15.0) % Plt Count 158 (150-400) K/uL MPV 12.40 H (7.40-12.00) fL Neut % (Auto) (48.0-80.0) % Lymph % (Auto) (16.0-40.0) % Story % (Auto) (0.0-15.0) % Eos % (Auto) (0.0-7.0) % Baso % (Auto) (0.0-1.5) % Neut # (Auto) (1.4-5.7) K/uL Lymph # (Auto) (0.6-2.4) K/uL Story # (Auto) (0.0-0.8) K/uL Eos # (Auto) (0.0-0.7) K/uL Baso # (Auto) (0.0-0.1) K/uL Nucleated RBC % 0.0 /100WBC Nucleated RBCs # 0 K/uL Sodium 143 (136-148) mmol/L Potassium 3.6 (3.5-5.1) mmol/L Chloride 109 H (98-107) mmol/L Carbon Dioxide 24.9 (21.0-32.0) mmol/L BUN 21 H (7.0-18.0) mg/dL Creatinine 1.3 (0.8-1.3) mg/dL Est Cr Clr Drug Dosing 57.20 mL/min Estimated GFR (MDRD) 56.5 ml/min Glucose 83 (74-106) mg/dL Calcium 8.1 L (8.5-10.1) mg/dL Total Bilirubin (0.2-1.0) mg/dL AST (15-37) IU/L ALT (14-63) IU/L Alkaline Phosphatase (46-116) U/L Troponin I (0.000-0.056) ng/mL Total Protein (6.4-8.2) g/dL Albumin (3.4-5.0) g/dL Globulin (2.6-4.0) g/dL Albumin/Globulin Ratio (0.9-1.6) Urine Color YELLOW Urine Appearance CLEAR Urine pH 6.0 (5.0-8.0) Ur Specific [employer] [place] 1.025 (1.001-1.035) Urine Protein NEGATIVE (NEGATIVE) mg/dL Urine Glucose (UA) NEGATIVE (NEGATIVE) mg/dL Urine Ketones NEGATIVE (NEGATIVE) mg/dL Urine Occult Blood SMALL H (NEGATIVE) Urine Nitrite NEGATIVE (NEGATIVE) Urine Bilirubin NEGATIVE (NEGATIVE) Urine Urobilinogen 0.2 (<2.0) EU/dL Ur Leukocyte Esterase NEGATIVE (NEGATIVE) Urine RBC NONE SEEN (0-2/HPF) Urine WBC 0-1 (0-5/HPF) Ur Epithelial Cells RARE (NONE-FEW) Urine Bacteria FEW (NEGATIVE) Urine Mucus LIGHT (NONE-MOD) SARS-CoV-2 RNA (МАРИЯ) (NEGATIVE) Med Orders - Current: Current Medications Discontinued Medications Diphtheria/Tetanus/Acell Pertussis (Diphtheria,Pertussis(Acell),Tetanus Vaccine 0.5 Ml Syringe) 0.5 ml IM .ONCE ONE Stop: 06/08/21 17:41 Last Admin: 08/22/21 18:23 Dose: 0.5 ml Documented by: Gadobenate Dimeglumine (Gadobenate Dime[place]umine 529 Mg/Ml 20 Ml Sdv) 20 ml IVPUSH ONETIME STA Stop: 06/09/21 07:23 Last Admin: 06/09/21 07:23 Dose: 20 ml Documented by: Sodium Chloride (Normal Saline) 1,000 mls @ 999 mls/hr IV BOLUS ONE Stop: 06/08/21 18:39 Last Admin: 06/08/21 18:20 Dose: 999 mls/hr Documented by: - Exam Quality Assessment: No: Supplemental Oxygen General: Alert, Oriented, Cooperative, No Acute Distress HEENT: Other (Abrasions to left side of face including upper lip and eye from fall) Lungs: Clear to Auscultation, Normal Respiratory Effort Cardiovascular: Regular Rate, Regular Rhythm GI/Abdominal Exam: Normal Bowel Sounds, Soft, Non-Tender Extremities: Normal Inspection, Normal Range of Motion, Non-Tender, No Pedal Edema Skin: Warm, Dry Wound/Incisions: Healing Well Neurological: No New Focal Deficit Psy/Mental Status: Alert, Normal Affect, Normal Mood - Patient Data Lab Results Last 24 hrs: Laboratory Results - last 24 hr 06/08/21 06/08/21 06/08/21 Range/Units 17:15 17:15 19:30 WBC 6.69 (4.0-11.0) K/uL RBC 4.72 (4.50-5.90) M/uL Hgb 14.8 (13.0-17.0) g/dL Hct 44.9 (38.0-50.0) % MCV 95.1 (80.0-98.0) fL MCH 31.4 (27.0-32.0) pg MCHC 33.0 (31.0-37.0) g/dL RDW Std Deviation 47.0 (28.0-62.0) fl RDW Coeff of [place] 14 (11.0-15.0) % Plt Count 206 (150-400) K/uL MPV 12.20 H (7.40-12.00) fL Neut % (Auto) 60.9 (48.0-80.0) % Lymph % (Auto) 26.5 (16.0-40.0) % Story % (Auto) 8.8 (0.0-15.0) % Eos % (Auto) 3.4 (0.0-7.0) % Baso % (Auto) 0.4 (0.0-1.5) % Neut # (Auto) 4.1 (1.4-5.7) K/uL Lymph # (Auto) 1.8 (0.6-2.4) K/uL Story # (Auto) 0.6 (0.0-0.8) K/uL Eos # (Auto) 0.2 (0.0-0.7) K/uL Baso # (Auto) 0.0 (0.0-0.1) K/uL Nucleated RBC % 0.0 /100WBC Nucleated RBCs # 0 K/uL Sodium 142 (136-148) mmol/L Potassium 4.6 (3.5-5.1) mmol/L Chloride 106 (98-107) mmol/L Carbon Dioxide 24.5 (21.0-32.0) mmol/L BUN 26 H (7.0-18.0) mg/dL Creatinine 1.6 H (0.8-1.3) mg/dL Est Cr Clr Drug Dosing 46.48 mL/min Estimated GFR (MDRD) 44.5 ml/min Glucose 103 (74-106) mg/dL Calcium 8.6 (8.5-10.1) mg/dL Total Bilirubin 0.6 (0.2-1.0) mg/dL AST 24 (15-37) IU/L ALT 23 (14-63) IU/L Alkaline Phosphatase 58 (46-116) U/L Troponin I < 0.050 (0.000-0.056) ng/mL Total Protein 6.8 (6.4-8.2) g/dL Albumin 3.6 (3.4-5.0) g/dL Globulin 3.2 (2.6-4.0) g/dL Albumin/Globulin Ratio 1.1 (0.9-1.6) Urine Color Urine Appearance Urine pH (5.0-8.0) Ur Specific [place] (1.001-1.035) Urine Protein (NEGATIVE) mg/dL Urine Glucose (UA) (NEGATIVE) mg/dL Urine Ketones (NEGATIVE) mg/dL Urine Occult Blood (NEGATIVE) Urine Nitrite (NEGATIVE) Urine Bilirubin (NEGATIVE) Urine Urobilinogen (<2.0) EU/dL Ur Leukocyte Esterase (NEGATIVE) Urine RBC (0-2/HPF) Urine WBC (0-5/HPF) Ur Epithelial Cells (NONE-FEW) Urine Bacteria (NEGATIVE) Urine Mucus (NONE-MOD) SARS-CoV-2 RNA (МАРИЯ) NEGATIVE (NEGATIVE) 06/08/21 06/09/21 06/09/21 Range/Units 21:30 05:10 05:10 WBC 6.29 (4.0-11.0) K/uL RBC 4.42 L (4.50-5.90) M/uL Hgb 13.6 (13.0-17.0) g/dL Hct 41.6 (38.0-50.0) % MCV 94.1 (80.0-98.0) fL MCH 30.8 (27.0-32.0) pg MCHC 32.7 (31.0-37.0) g/dL RDW Std Deviation 46.4 (28.0-62.0) fl RDW Coeff of [place] 13 (11.0-15.0) % Plt Count 158 (150-400) K/uL MPV 12.40 H (7.40-12.00) fL Neut % (Auto) (48.0-80.0) % Lymph % (Auto) (16.0-40.0) % Story % (Auto) (0.0-15.0) % Eos % (Auto) (0.0-7.0) % Baso % (Auto) (0.0-1.5) % Neut # (Auto) (1.4-5.7) K/uL Lymph # (Auto) (0.6-2.4) K/uL Story # (Auto) (0.0-0.8) K/uL Eos # (Auto) (0.0-0.7) K/uL Baso # (Auto) (0.0-0.1) K/uL Nucleated RBC % 0.0 /100WBC Nucleated RBCs # 0 K/uL Sodium 143 (136-148) mmol/L Potassium 3.6 (3.5-5.1) mmol/L Chloride 109 H (98-107) mmol/L Carbon Dioxide 24.9 (21.0-32.0) mmol/L BUN 21 H (7.0-18.0) mg/dL Creatinine 1.3 (0.8-1.3) mg/dL Est Cr Clr Drug Dosing 57.20 mL/min Estimated GFR (MDRD) 56.5 ml/min Glucose 83 (74-106) mg/dL Calcium 8.1 L (8.5-10.1) mg/dL Total Bilirubin (0.2-1.0) mg/dL AST (15-37) IU/L ALT (14-63) IU/L Alkaline Phosphatase (46-116) U/L Troponin I (0.000-0.056) ng/mL Total Protein (6.4-8.2) g/dL Albumin (3.4-5.0) g/dL Globulin (2.6-4.0) g/dL Albumin/Globulin Ratio (0.9-1.6) Urine Color YELLOW Urine Appearance CLEAR Urine pH 6.0 (5.0-8.0) Ur Specific [employer] [place] 1.025 (1.001-1.035) Urine Protein NEGATIVE (NEGATIVE) mg/dL Urine Glucose (UA) NEGATIVE (NEGATIVE) mg/dL Urine Ketones NEGATIVE (NEGATIVE) mg/dL Urine Occult Blood SMALL H (NEGATIVE) Urine Nitrite NEGATIVE (NEGATIVE) Urine Bilirubin NEGATIVE (NEGATIVE) Urine Urobilinogen 0.2 (<2.0) EU/dL Ur Leukocyte Esterase NEGATIVE (NEGATIVE) Urine RBC NONE SEEN (0-2/HPF) Urine WBC 0-1 (0-5/HPF) Ur Epithelial Cells RARE (NONE-FEW) Urine Bacteria FEW (NEGATIVE) Urine Mucus LIGHT (NONE-MOD) SARS-CoV-2 RNA (МАРИЯ) (NEGATIVE) Result Diagrams: 06/09/21 05:10 06/09/21 05:10 Sepsis Event Note - Evaluation Sepsis Screening Result: No Definite Risk - Focused Exam Vital Signs: Vital Signs Temp Pulse Resp BP Pulse Ox 06/09/21 08:24 97.1 F 62 16 129/62 95 06/09/21 03:43 97.0 F 71 18 143/81 H 96 06/08/21 23:15 97.5 F 67 16 135/60 95 - Problem List & Annotations (1) Ataxia SNOMED Code(s): 96408807 Code(s): R27.0 - ATAXIA, UNSPECIFIED Status: Acute Current Visit: Yes (2) Cerebral atrophy SNOMED Code(s): 687674266 Code(s): G31.9 - DEGENERATIVE DISEASE OF NERVOUS SYSTEM, UNSPECIFIED Status: Acute Current Visit: Yes (3) Dysmetria SNOMED Code(s): 35781693 Code(s): R27.8 - OTHER LACK OF COORDINATION Status: Acute Current Visit: Yes (4) Hypertension SNOMED Code(s): 40475255 Code(s): I10 - ESSENTIAL (PRIMARY) HYPERTENSION Status: Chronic Current Visit: Yes (5) Hyperlipidemia SNOMED Code(s): 72177704 Code(s): E78.5 - HYPERLIPIDEMIA, UNSPECIFIED Status: Chronic Current Visit: Yes (6) Superficial abrasion SNOMED Code(s): 398445285 Code(s): T14.8XXA - OTHER INJURY OF UNSPECIFIED BODY REGION, INITIAL ENCOUNTER Status: Acute Current Visit: Yes (7) Bipolar disorder SNOMED Code(s): 14742840 Code(s): F31.9 - BIPOLAR DISORDER, UNSPECIFIED Status: Chronic Current Visit: Yes - Problem List Review Problem List Initiated/Reviewed/Updated: Yes - My Orders Last 24 Hours: My Active Orders 06/09/21 10:42 Notify Provider Consults [RC] ASDIRECTED Consult to Physician [CONS] Routine - Plan Plan:: 61 yo male admitted for ataxia with concern for possible movement disorder. 1. Ataxia/dysmetria -Consult Dr. Alcaraz she evaluated patient recommended evaluation with lab w ork see her note lab work was ordered and pending -Consult physical therapy -Consult Occupational Therapy -Consult case management for possible placement, social work professor did speak with patient regarding placement he is currently at this time unwilling for placement but is okay with in-home care such as possible home health. 2. Bipolar -Restart home meds upon med rec completion as patient is poor historian. 3. Hyperlipidemia/hypertension -Restart lisinopril and atorvastatin along with metoprolol VTE prophylaxis: Lovenox CODE STATUS: Full code Dispo: 2 to 3 days pending improvement.
--- NOTE | 2021-06-09 12:21 | PCM.CONS ---
H&P History of Present Illness - General Date of Service: 06/09/21 Admit Problem/Dx: Admission Diagnosis/Problem Admission Diagnosis/Problem Ataxia - History of Present Illness Initial Comments - Free Text/Narative: He notes problem with balance for about month, but endorsed that when he last saw his son 2 months, he was concerned about his balance. He lives alone. [place] assists with medications. He endorses being on [place] but then denied it, and it was not on medication list dating back two years. He notes that he worked 8 months ago, but can't recall what he did. He denies n/v, diarrhea, weight loss, fever, numbness, clumsiness in hands, diplopia He was in the ED 05/07/21 with AMS after a fall. Last TSH 10/28/2020 was normal COVID 06/08/21 negative ETOH 05/07/2021 not detected. MRI brain 06/08/21 cerebellar atrophy - Related Data Allergies/Adverse Reactions: Allergies Allergy/AdvReac Type Severity Reaction Status Date / Time phenytoin sodium Allergy Unknown Verified 06/08/21 21:22 [From Dilantin] Home Medications: Home Meds ARIPiprazole [Abilify] 5 mg PO DAILY 10/30/14 [History] Aspirin [[place] Aspirin EC] 81 mg PO DAILY 10/30/14 [History] FLUoxetine HCl [Fluoxetine HCl] 40 mg PO DAILY 10/30/14 [History] Mirtazapine 30 mg PO BEDTIME 10/30/14 [History] Rosuvastatin [Crestor] 20 mg PO DAILY 10/30/14 [History] Past Medical History HEENT History: Reports: None Cardiovascular History: Reports: None Respiratory History: Reports: None Gastrointestinal History: Reports: None Genitourinary History: Reports: None Musculoskeletal History: Reports: None Neurological History: Reports: None Psychiatric History: Reports: Depression Endocrine/Metabolic History: Reports: None Insulin Pump Model and Stave Jointer: None Hematologic History: Reports: None Immunologic History: Reports: None Oncologic (Cancer) History: Reports: None Dermatologic History: Reports: None - Infectious Disease History Infectious Disease History: Reports: None - Past Surgical History Head Surgeries/Procedures: Reports: None Social & Family History - Tobacco Use Tobacco Use Status *Q: Never Tobacco User Second Hand Smoke Exposure: No - Caffeine Use Caffeine Use: Reports: None - Recreational Drug Use Recreational Drug Use: No H&P Review of Systems - Review of Systems: Review Of Systems: Comprehensive ROS is negative, except as noted in HPI. Exam - Exam Exam: See Below - Vital Signs Vital Signs: Last Vital Signs Temp 36.2 C 06/09/21 08:24 Pulse 62 06/09/21 08:24 Resp 16 06/09/21 08:24 BP 129/62 06/09/21 08:24 Pulse Ox 95 06/09/21 08:24 Weight: 100.924 kg - Exam Physical Exam Comments:: Neurological: Mental Status: General: Normal activity, good hygiene, appropriate appearance. Level of consciousness: Awake, alert. Inconsistent history, recall of timeline Cranial Nerves: Pupils equally round and reactive to light. Visual leo full to confrontation. Gaze conjugate, EOMI. Sensation intact and symmetric to light touch. Facial strength is full and symmetric. Palate elevates symmetrically. No rmal shrug bilaterally. Tongue protrudes midline Sensation: Sensation is intact to temp in feet. Vibratory sense present at great toes. Motor: Normal tone and power. Reflexes: asymmetry, increased left biceps and left ankle jerk. 2-3 beats ankle clonus on the lef.t Coordination: Finger to nose slow, mild tremor; heel to martinez - dysmetria bilaterally. . Gait: truncal ataxia with sitting - Patient Data Lab Results Last 24 hrs: Laboratory Results - last 24 hr 06/08/21 06/08/21 06/08/21 Range/Units 17:15 17:15 19:30 WBC 6.69 (4.0-11.0) K/uL RBC 4.72 (4.50-5.90) M/uL Hgb 14.8 (13.0-17.0) g/dL Hct 44.9 (38.0-50.0) % MCV 95.1 (80.0-98.0) fL MCH 31.4 (27.0-32.0) pg MCHC 33.0 (31.0-37.0) g/dL RDW Std Deviation 47.0 (28.0-62.0) fl RDW Coeff of [place] 14 (11.0-15.0) % Plt Count 206 (150-400) K/uL MPV 12.20 H (7.40-12.00) fL Neut % (Auto) 60.9 (48.0-80.0) % Lymph % (Auto) 26.5 (16.0-40.0) % [place] % (Auto) 8.8 (0.0-15.0) % Eos % (Auto) 3.4 (0.0-7.0) % Baso % (Auto) 0.4 (0.0-1.5) % Neut # (Auto) 4.1 (1.4-5.7) K/uL Lymph # (Auto) 1.8 (0.6-2.4) K/uL [place] # (Auto) 0.6 (0.0-0.8) K/uL Eos # (Auto) 0.2 (0.0-0.7) K/uL Baso # (Auto) 0.0 (0.0-0.1) K/uL Nucleated RBC % 0.0 /100WBC Nucleated RBCs # 0 K/uL Sodium 142 (136-148) mmol/L Potassium 4.6 (3.5-5.1) mmol/L Chloride 106 (98-107) mmol/L Carbon Dioxide 24.5 (21.0-32.0) mmol/L BUN 26 H (7.0-18.0) mg/dL Creatinine 1.6 H (0.8-1.3) mg/dL Est Cr Clr Drug Dosing 46.48 mL/min Estimated GFR (MDRD) 44.5 ml/min Glucose 103 (74-106) mg/dL Calcium 8.6 (8.5-10.1) mg/dL Total Bilirubin 0.6 (0.2-1.0) mg/dL AST 24 (15-37) IU/L ALT 23 (14-63) IU/L Alkaline Phosphatase 58 (46-116) U/L Troponin I < 0.050 (0.000-0.056) ng/mL Total Protein 6.8 (6.4-8.2) g/dL Albumin 3.6 (3.4-5.0) g/dL Globulin 3.2 (2.6-4.0) g/dL Albumin/Globulin Ratio 1.1 (0.9-1.6) Urine Color Urine Appearance Urine pH (5.0-8.0) Ur Specific [place] (1.001-1.035) Urine Protein (NEGATIVE) mg/dL Urine Glucose (UA) (NEGATIVE) mg/dL Urine Ketones (NEGATIVE) mg/dL Urine Occult Blood (NEGATIVE) Urine Nitrite (NEGATIVE) Urine Bilirubin (NEGATIVE) Urine Urobilinogen (<2.0) EU/dL Ur Leukocyte Esterase (NEGATIVE) Urine RBC (0-2/HPF) Urine WBC (0-5/HPF) Ur Epithelial Cells (NONE-FEW) Urine Bacteria (NEGATIVE) Urine Mucus (NONE-MOD) SARS-CoV-2 RNA (МАРИЯ) NEGATIVE (NEGATIVE) 06/08/21 06/09/21 06/09/21 Range/Units 21:30 05:10 05:10 WBC 6.29 (4.0-11.0) K/uL RBC 4.42 L (4.50-5.90) M/uL Hgb 13.6 (13.0-17.0) g/dL Hct 41.6 (38.0-50.0) % MCV 94.1 (80.0-98.0) fL MCH 30.8 (27.0-32.0) pg MCHC 32.7 (31.0-37.0) g/dL RDW Std Deviation 46.4 (28.0-62.0) fl RDW Coeff of [place] 13 (11.0-15.0) % Plt Count 158 (150-400) K/uL MPV 12.40 H (7.40-12.00) fL Neut % (Auto) (48.0-80.0) % Lymph % (Auto) (16.0-40.0) % [place] % (Auto) (0.0-15.0) % Eos % (Auto) (0.0-7.0) % Baso % (Auto) (0.0-1.5) % Neut # (Auto) (1.4-5.7) K/uL Lymph # (Auto) (0.6-2.4) K/uL [place] # (Auto) (0.0-0.8) K/uL Eos # (Auto) (0.0-0.7) K/uL Baso # (Auto) (0.0-0.1) K/uL Nucleated RBC % 0.0 /100WBC Nucleated RBCs # 0 K/uL Sodium 143 (136-148) mmol/L Potassium 3.6 (3.5-5.1) mmol/L Chloride 109 H (98-107) mmol/L Carbon Dioxide 24.9 (21.0-32.0) mmol/L BUN 21 H (7.0-18.0) mg/dL Creatinine 1.3 (0.8-1.3) mg/dL Est Cr Clr Drug Dosing 57.20 mL/min Estimated GFR (MDRD) 56.5 ml/min Glucose 83 (74-106) mg/dL Calcium 8.1 L (8.5-10.1) mg/dL Total Bilirubin (0.2-1.0) mg/dL AST (15-37) IU/L ALT (14-63) IU/L Alkaline Phosphatase (46-116) U/L Troponin I (0.000-0.056) ng/mL Total Protein (6.4-8.2) g/dL Albumin (3.4-5.0) g/dL Globulin (2.6-4.0) g/dL Albumin/Globulin Ratio (0.9-1.6) Urine Color YELLOW Urine Appearance CLEAR Urine pH 6.0 (5.0-8.0) Ur Specific [place] 1.025 (1.001-1.035) Urine Protein NEGATIVE (NEGATIVE) mg/dL Urine Glucose (UA) NEGATIVE (NEGATIVE) mg/dL Urine Ketones NEGATIVE (NEGATIVE) mg/dL Urine Occult Blood SMALL H (NEGATIVE) Urine Nitrite NEGATIVE (NEGATIVE) Urine Bilirubin NEGATIVE (NEGATIVE) Urine Urobilinogen 0.2 (<2.0) EU/dL Ur Leukocyte Esterase NEGATIVE (NEGATIVE) Urine RBC NONE SEEN (0-2/HPF) Urine WBC 0-1 (0-5/HPF) Ur Epithelial Cells RARE (NONE-FEW) Urine Bacteria FEW (NEGATIVE) Urine Mucus LIGHT (NONE-MOD) SARS-CoV-2 RNA (МАРИЯ) (NEGATIVE) Result Diagrams: 06/09/21 05:10 06/09/21 05:10 Sepsis Event Note - Evaluation Sepsis Screening Result: No Definite Risk - Focused Exam Vital Signs: Vital Signs Temp Pulse Resp BP Pulse Ox 06/09/21 08:24 36.2 C 62 16 129/62 95 06/09/21 03:43 36.1 C 71 18 143/81 H 96 Consult PN Assessment/Plan Procedures: Procedures ALANINE AMINO (ALT) (SGPT) (03/07/14) ASSAY OF TROPONIN QUANT (05/07/21) ASSAY THYROID STIM HORMONE (10/28/20) CARDIOVASCULAR STRESS TEST (11/23/16) COMPLETE CBC AUTOMATED (02/16/19) COMPLETE CBC W/AUTO DIFF WBC (05/07/21) COMPREHEN METABOLIC PANEL (05/07/21) CT HEAD/BRAIN W/O DYE (05/07/21) DIAGNOSTIC COLONOSCOPY (11/01/14) DRUG TEST PRSMV CHEM ANLYZR (05/07/21) EMERGENCY DEPT VISIT (05/07/21) GLYCOSYLATED HEMOGLOBIN TEST (11/22/19) HT MUSCLE IMAGE SPECT SING (11/27/16) LIPID PANEL (10/28/20) METABOLIC PANEL TOTAL CA (04/13/17) MRI LUMBAR SPINE W/O DYE (12/19/15) OFFICE O/P EST LOW 20-29 MIN (11/03/18) OFFICE O/P EST MOD 30-39 MIN (11/03/18) PROTHROMBIN TIME (05/07/21) PT EVALUATION (02/07/16) ROUTINE VENIPUNCTURE (05/07/21) THERAPEUTIC EXERCISES (02/07/16) TTE W/DOPPLER COMPLETE (11/05/16) URINALYSIS AUTO W/SCOPE (05/07/21) X-RAY EXAM CHEST 1 VIEW (05/07/21) X-RAY EXAM L-S SPINE 2/3 VWS (12/13/15) X-RAY EXAM OF ABDOMEN (10/01/14) X-RAY EXAM OF HAND (05/07/21) X-RAY EXAM SACRUM TAILBONE (12/13/15) (1) Ataxia SNOMED Code(s): 89835115 Code(s): R27.0 - ATAXIA, UNSPECIFIED Current Visit: Yes Assessment:: Ataxia/dysmetria Unclear duration due to inconsistent history by at least month by history (ED visit 05/07/2021 for fall) Atrophy on MRI implies chronicity. Diff dx is broad including Whipple, CJD, ANNA, sarcoid, celiac, PML, antibody mediated, b12/E/Copper deficiency, hereditary spinocerebellar ataxia, neurodegenerative disorder. Lack of other symptoms and signal change renders the infections less likely. -Copper, B12, Vit E -Paraneoplastic panel, -ANNA antibody -MEGAN -HIV Problem List Initiated/Reviewed/Updated: Yes
[2021-06-09] MEDS ORDERED: Acetaminophen 325 MG Tab PO PRN (16:56)
[2021-06-09] MEDS ORDERED: Sodium Chloride 0.9% 2.5 ML Syringe FLUSH PRN (16:56)
[2021-06-09] MEDS ORDERED: Albuterol/Ipratropium 3.0-0.5 MG/3 ML Neb Soln NEB PRN (16:56)
[2021-06-09] MEDS ORDERED: Ondansetron 4 MG/2 ML SDV IVPUSH PRN (16:56)
[2021-06-09] MEDS ORDERED: Docusate Sodium 100 MG Cap PO PRN (16:56)
[2021-06-09] MEDS: Enoxaparin 40 MG/0.4 ML Syringe SUBCUT SCH (17:32)
[2021-06-10 07:21] LABS: CARBON DIOXIDE,CO2 25.9 mmol/L (21.0-32.0); POTASSIUM,K 3.7 mmol/L (3.5-5.1)
--- NOTE | 2021-06-10 07:51 | PCM.PN ---
- General Info Date of Service: 06/10/21 Admission Dx/Problem (Free Text): Admission Diagnosis/Problem Admission Diagnosis/Problem Ataxia Subjective Update: Feels improved today, no chest pain or SOB. No abdominal pain. Up sitting in chair waiting for breakfast. Has been ambulating with walker and SBA, feels as though he is improved. Continues to decline wanting residential placement. Would like Home Health at home with therapies as possible. Functional Status: Reports: Pain Controlled, Tolerating Diet, Ambulating, Urinating - Review of Systems General: Reports: No Symptoms. Denies: Weakness, Fatigue HEENT: Reports: No Symptoms. Denies: Headaches, Sore Throat, Visual Changes Pulmonary: Reports: No Symptoms. Denies: Shortness of Breath Cardiovascular: Reports: No Symptoms. Denies: Chest Pain Gastrointestinal: Reports: No Symptoms. Denies: Abdominal Pain, Nausea, Vomiting Genitourinary: Reports: No Symptoms. Denies: Dysuria, Frequency, Burning Musculoskeletal: Reports: No Symptoms Skin: Reports: Other (abrasion to L face/lip) Neurological: Reports: No Symptoms Psychiatric: Reports: No Symptoms - Patient Data Vitals - Most Recent: Last Vital Signs Temp 97.5 F 06/10/21 04:25 Pulse 79 06/10/21 04:25 Resp 18 06/10/21 04:25 BP 133/64 06/10/21 04:25 Pulse Ox 95 06/10/21 04:25 Weight - Most Recent: 100.924 kg I&O - Last 24 Hours: Intake & Output 06/09/21 06/10/21 06/10/21 22:59 06:59 14:59 Intake Total 450 400 Output Total 750 1000 Balance -300 -600 Lab Results Last 24 Hours: Laboratory Results - last 24 hr 06/09/21 06/09/21 06/10/21 Range/Units 12:37 12:37 05:45 WBC 5.54 (4.0-11.0) K/uL RBC 4.33 L (4.50-5.90) M/uL Hgb 13.2 (13.0-17.0) g/dL Hct 40.7 (38.0-50.0) % MCV 94.0 (80.0-98.0) fL MCH 30.5 (27.0-32.0) pg MCHC 32.4 (31.0-37.0) g/dL RDW Std Deviation 45.6 (28.0-62.0) fl RDW Coeff of Marley 13 (11.0-15.0) % Plt Count 179 (150-400) K/uL MPV 12.20 H (7.40-12.00) fL Neut % (Auto) 59.8 (48.0-80.0) % Lymph % (Auto) 29.1 (16.0-40.0) % Gilliam % (Auto) 7.6 (0.0-15.0) % Eos % (Auto) 3.1 (0.0-7.0) % Baso % (Auto) 0.4 (0.0-1.5) % Neut # (Auto) 3.3 (1.4-5.7) K/uL Lymph # (Auto) 1.6 (0.6-2.4) K/uL Gilliam # (Auto) 0.4 (0.0-0.8) K/uL Eos # (Auto) 0.2 (0.0-0.7) K/uL Baso # (Auto) 0.0 (0.0-0.1) K/uL Nucleated RBC % 0.0 /100WBC Nucleated RBCs # 0 K/uL Sodium (136-148) mmol/L Potassium (3.5-5.1) mmol/L Chloride (98-107) mmol/L Carbon Dioxide (21.0-32.0) mmol/L BUN (7.0-18.0) mg/dL Creatinine (0.8-1.3) mg/dL Est Cr Clr Drug Dosing mL/min Estimated GFR (MDRD) ml/min Glucose (74-106) mg/dL Calcium (8.5-10.1) mg/dL Magnesium (1.8-2.4) mg/dL Vitamin B12 204 (193-986) pg/mL HIV 1&2 Ag/Ab, 4th Gen 0.3 (<1.0) INDEX 06/10/21 Range/Units 05:45 WBC (4.0-11.0) K/uL RBC (4.50-5.90) M/uL Hgb (13.0-17.0) g/dL Hct (38.0-50.0) % MCV (80.0-98.0) fL MCH (27.0-32.0) pg MCHC (31.0-37.0) g/dL RDW Std Deviation (28.0-62.0) fl RDW Coeff of Marley (11.0-15.0) % Plt Count (150-400) K/uL MPV (7.40-12.00) fL Neut % (Auto) (48.0-80.0) % Lymph % (Auto) (16.0-40.0) % Gilliam % (Auto) (0.0-15.0) % Eos % (Auto) (0.0-7.0) % Baso % (Auto) (0.0-1.5) % Neut # (Auto) (1.4-5.7) K/uL Lymph # (Auto) (0.6-2.4) K/uL Gilliam # (Auto) (0.0-0.8) K/uL Eos # (Auto) (0.0-0.7) K/uL Baso # (Auto) (0.0-0.1) K/uL Nucleated RBC % /100WBC Nucleated RBCs # K/uL Sodium 142 (136-148) mmol/L Potassium 3.7 (3.5-5.1) mmol/L Chloride 107 (98-107) mmol/L Carbon Dioxide 25.9 (21.0-32.0) mmol/L BUN 18 (7.0-18.0) mg/dL Creatinine 1.3 (0.8-1.3) mg/dL Est Cr Clr Drug Dosing 57.20 mL/min Estimated GFR (MDRD) 56.5 ml/min Glucose 85 (74-106) mg/dL Calcium 8.4 L (8.5-10.1) mg/dL Magnesium 2.3 (1.8-2.4) mg/dL Vitamin B12 (193-986) pg/mL HIV 1&2 Ag/Ab, 4th Gen (<1.0) INDEX Med Orders - Current: Current Medications Acetaminophen (Acetaminophen 325 Mg Tab) 650 mg PO Q4H PRN PRN Reason: Pain (Mild 1-3)/fever Albuterol/Ipratropium (Albuterol/Ipratropium 3.0-0.5 Mg/3 Ml Neb Soln) 3 ml NEB Q4HRRT PRN PRN Reason: Shortness Of Breath/wheezing Docusate Sodium (Docusate Sodium 100 Mg Cap) 100 mg PO BID PRN PRN Reason: Constipation Enoxaparin Sodium (Enoxaparin 40 Mg/0.4 Ml Syringe) 40 mg SUBCUT Q24H [facility] Last Admin: 06/09/21 17:32 Dose: 40 mg Documented by: Ondansetron HCl (Ondansetron 4 Mg/2 Ml Sdv) 4 mg IVPUSH Q4H PRN PRN Reason: Nausea Sodium Chloride (Sodium Chloride 0.9% 2.5 Ml Syringe) 2.5 ml FLUSH ASDIRECTED PRN PRN Reason: Keep Vein Open Discontinued Medications Diphtheria/Tetanus/Acell Pertussis (Diphtheria,Pertussis(Acell),Tetanus Vaccine 0.5 Ml Syringe) 0.5 ml IM .ONCE ONE Stop: 06/08/21 17:41 Last Admin: 06/08/21 18:23 Dose: 0.5 ml Documented by: Gadobenate Dimeglumine (Gadobenate Dimeglumine 529 Mg/Ml 20 Ml Sdv) 20 ml IVPUSH ONETIME STA Stop: 06/09/21 07:23 Last Admin: 06/09/21 07:23 Dose: 20 ml Documented by: Sodium Chloride (Normal Saline) 1,000 mls @ 999 mls/hr IV BOLUS ONE Stop: 06/08/21 18:39 Last Admin: 06/08/21 18:20 Dose: 999 mls/hr Documented by: - Exam Quality Assessment: DVT Prophylaxis. No: Supplemental Oxygen General: Alert, Oriented, Cooperative, No Acute Distress Neck: Supple Lungs: Clear to Auscultation, Normal Respiratory Effort Cardiovascular: Regular Rate, Regular Rhythm, No Murmurs GI/Abdominal Exam: Normal Bowel Sounds, Soft, Non-Tender Back Exam: Normal Inspection, Full Range of Motion Extremities: Normal Inspection, Normal Range of Motion, Non-Tender, No Pedal Edema Wound/Incisions: Healing Well, Other (abrasion to L face and upper lip, Healing well. swelling improving. ) Neurological: No New Focal Deficit. No: Normal Gait (mild ataxia noted, but improving) Psy/Mental Status: Alert, Normal Affect, Normal Mood - Patient Data Lab Results Last 24 hrs: Laboratory Results - last 24 hr 06/09/21 06/09/21 06/10/21 Range/Units 12:37 12:37 05:45 WBC 5.54 (4.0-11.0) K/uL RBC 4.33 L (4.50-5.90) M/uL Hgb 13.2 (13.0-17.0) g/dL Hct 40.7 (38.0-50.0) % MCV 94.0 (80.0-98.0) fL MCH 30.5 (27.0-32.0) pg MCHC 32.4 (31.0-37.0) g/dL RDW Std Deviation 45.6 (28.0-62.0) fl RDW Coeff of Marley 13 (11.0-15.0) % Plt Count 179 (150-400) K/uL MPV 12.20 H (7.40-12.00) fL Neut % (Auto) 59.8 (48.0-80.0) % Lymph % (Auto) 29.1 (16.0-40.0) % Gilliam % (Auto) 7.6 (0.0-15.0) % Eos % (Auto) 3.1 (0.0-7.0) % Baso % (Auto) 0.4 (0.0-1.5) % Neut # (Auto) 3.3 (1.4-5.7) K/uL Lymph # (Auto) 1.6 (0.6-2.4) K/uL Gilliam # (Auto) 0.4 (0.0-0.8) K/uL Eos # (Auto) 0.2 (0.0-0.7) K/uL Baso # (Auto) 0.0 (0.0-0.1) K/uL Nucleated RBC % 0.0 /100WBC Nucleated RBCs # 0 K/uL Sodium (136-148) mmol/L Potassium (3.5-5.1) mmol/L Chloride (98-107) mmol/L Carbon Dioxide (21.0-32.0) mmol/L BUN (7.0-18.0) mg/dL Creatinine (0.8-1.3) mg/dL Est Cr Clr Drug Dosing mL/min Estimated GFR (MDRD) ml/min Glucose (74-106) mg/dL Calcium (8.5-10.1) mg/dL Magnesium (1.8-2.4) mg/dL Vitamin B12 204 (193-986) pg/mL HIV 1&2 Ag/Ab, 4th Gen 0.3 (<1.0) INDEX 06/10/21 Range/Units 05:45 WBC (4.0-11.0) K/uL RBC (4.50-5.90) M/uL Hgb (13.0-17.0) g/dL Hct (38.0-50.0) % MCV (80.0-98.0) fL MCH (27.0-32.0) pg MCHC (31.0-37.0) g/dL RDW Std Deviation (28.0-62.0) fl RDW Coeff of Marley (11.0-15.0) % Plt Count (150-400) K/uL MPV (7.40-12.00) fL Neut % (Auto) (48.0-80.0) % Lymph % (Auto) (16.0-40.0) % Gilliam % (Auto) (0.0-15.0) % Eos % (Auto) (0.0-7.0) % Baso % (Auto) (0.0-1.5) % Neut # (Auto) (1.4-5.7) K/uL Lymph # (Auto) (0.6-2.4) K/uL Gilliam # (Auto) (0.0-0.8) K/uL Eos # (Auto) (0.0-0.7) K/uL Baso # (Auto) (0.0-0.1) K/uL Nucleated RBC % /100WBC Nucleated RBCs # K/uL Sodium 142 (136-148) mmol/L Potassium 3.7 (3.5-5.1) mmol/L Chloride 107 (98-107) mmol/L Carbon Dioxide 25.9 (21.0-32.0) mmol/L BUN 18 (7.0-18.0) mg/dL Creatinine 1.3 (0.8-1.3) mg/dL Est Cr Clr Drug Dosing 57.20 mL/min Estimated GFR (MDRD) 56.5 ml/min Glucose 85 (74-106) mg/dL Calcium 8.4 L (8.5-10.1) mg/dL Magnesium 2.3 (1.8-2.4) mg/dL Vitamin B12 (193-986) pg/mL HIV 1&2 Ag/Ab, 4th Gen (<1.0) INDEX Result Diagrams: 06/10/21 05:45 06/10/21 05:45 Sepsis Event Note - Evaluation Sepsis Screening Result: No Definite Risk - Focused Exam Vital Signs: Vital Signs Temp Pulse Resp BP Pulse Ox Pulse Ox 06/10/21 04:25 97.5 F 79 18 133/64 95 06/09/21 23:51 97.5 F 68 18 140/61 94 L 94 L 06/09/21 21:51 97.0 F 64 20 145/58 H 94 L - Problem List & Annotations (1) Ataxia SNOMED Code(s): 70748300 Code(s): R27.0 - ATAXIA, UNSPECIFIED Status: Acute Current Visit: Yes (2) Cerebral atrophy SNOMED Code(s): 274354547 Code(s): G31.9 - DEGENERATIVE DISEASE OF NERVOUS SYSTEM, UNSPECIFIED Status: Acute Current Visit: Yes (3) Dysmetria SNOMED Code(s): 84797266 Code(s): R27.8 - OTHER LACK OF COORDINATION Status: Acute Current Visit: Yes (4) Hypertension SNOMED Code(s): 21326652 Code(s): I10 - ESSENTIAL (PRIMARY) HYPERTENSION Status: Chronic Current Visit: Yes (5) Hyperlipidemia SNOMED Code(s): 49439766 Code(s): E78.5 - HYPERLIPIDEMIA, UNSPECIFIED Status: Chronic Current Visit: Yes (6) Superficial abrasion SNOMED Code(s): 588810726 Code(s): T14.8XXA - OTHER INJURY OF UNSPECIFIED BODY REGION, INITIAL ENCOUNTER Status: Acute Current Visit: Yes (7) Bipolar disorder SNOMED Code(s): 98446202 Code(s): F31.9 - BIPOLAR DISORDER, UNSPECIFIED Status: Chronic Current Visit: Yes (8) B12 deficiency SNOMED Code(s): 295289016 Code(s): E53.8 - DEFICIENCY OF OTHER SPECIFIED B GROUP VITAMINS Status: Acute Current Visit: Yes - Problem List Review Problem List Initiated/Reviewed/Updated: Yes - My Orders Last 24 Hours: My Active Orders 06/09/21 10:42 Notify Provider Consults [RC] ASDIRECTED Consult to Physician [CONS] Routine 06/09/21 12:37 MEGAN [REF] Routine COPPER, SERUM [REF] Routine ANNA-65 AUTOANTIBODY [REF] Routine PARANEOPLSTC AUTO AB EVAL,S [REF] Routine VITAMIN E, SERUM [REF] Routine 06/09/21 16:56 OT Evaluation and Treatment [CONS] Routine Acetaminophen [TylenoL] 650 mg PO Q4H PRN Albuterol/Ipratropium [DuoNeb 3.0-0.5 MG/3 ML] 3 ml NEB Q4HRRT PRN Docusate Sodium [Colace] 100 mg PO BID PRN Ondansetron [Zofran] 4 mg IVPUSH Q4H PRN Sodium Chloride 0.9% [Saline Flush] 2.5 ml FLUSH ASDIRECTED PRN Saline Lock Insert [OM.PC] Routine 06/09/21 16:57 Intake and Output [RC] QSHIFT RT Aerosol Therapy [RC] ASDIRECTED 06/09/21 17:00 Enoxaparin [Lovenox] 40 mg SUBCUT Q24H 06/10/21 07:50 Obtain Home Medication List [OM.PC] Stat - Plan Plan:: 61 yo male admitted for ataxia with concern for possible movement disorder. 1. Ataxia/dysmetria - Mild improvement. - Declines wanting placement at this time. Will consider Home Health. -Consult Dr. Alcaraz , appreciate her assistance. Labwork pending. HIV negative. B12 204, low end of normal. -Consult physical therapy -Consult Occupational Therapy 2. B12 deficiency - Supplement, 1,000 units IM daily. 3. Bipolar -Home meds to be restarted to including Benztropine, Abilify, Trintellix and Buproprion 4. Hyperlipidemia/hypertension -Restart home medications as med rec has been completed. VTE prophylaxis: Lovenox CODE STATUS: Full code Dispo: 2 to 3 days pending improvement.
[2021-06-10] MEDS ORDERED: Vortioxetine Hydrobromide [Trintellix] 20 MG Tablet PO SCH (09:30)
[2021-06-10] MEDS: Aspirin 81 MG Tab.EC PO SCH (10:21)
[2021-06-10] MEDS: amLODIPine 2.5 MG Tab PO SCH (10:21)
[2021-06-10] MEDS: Metoprolol Tartrate 50 MG Tab PO SCH (10:22)
[2021-06-10] MEDS: Lisinopril 10 MG Tab PO SCH (10:22)
[2021-06-10] MEDS: buPROPion 150 MG Tab.SR PO SCH ×2 (10:22→21:48)
[2021-06-10] MEDS: Cyanocobalamin (Vitamin B12) 1,000 MCG/ML SDV IM SCH (10:23)
[2021-06-10] MEDS: ARIPiprazole 10 MG Tab PO SCH (10:38)
[2021-06-10] MEDS: Vortioxetine Hydrobromide [Trintellix] 20 MG Tablet PO SCH (12:57)
[2021-06-10] MEDS: Enoxaparin 40 MG/0.4 ML Syringe SUBCUT SCH (17:18)
[2021-06-10] MEDS ORDERED: atorvaSTATin 40 MG Tab PO SCH (21:00)
[2021-06-10] MEDS ORDERED: Benztropine 1 MG Tab PO SCH (21:00)
[2021-06-11 07:24] LABS: CARBON DIOXIDE,CO2 28.3 mmol/L (21.0-32.0); POTASSIUM,K 3.8 mmol/L (3.5-5.1)
[2021-06-11] MEDS: Metoprolol Tartrate 50 MG Tab PO SCH (09:59)
[2021-06-11] MEDS: Vortioxetine Hydrobromide [Trintellix] 20 MG Tablet PO SCH (09:59)
[2021-06-11] MEDS: buPROPion 150 MG Tab.SR PO SCH (09:59)
[2021-06-11] MEDS: Lisinopril 10 MG Tab PO SCH (09:59)
[2021-06-11] MEDS: amLODIPine 2.5 MG Tab PO SCH (09:59)
[2021-06-11] MEDS: Aspirin 81 MG Tab.EC PO SCH (09:59)
[2021-06-11] MEDS: Cyanocobalamin (Vitamin B12) 1,000 MCG/ML SDV IM SCH (09:59)
--- NOTE | 2021-06-11 11:30 | PCM.DCSUM1 ---
Discharge Summary - Hospital Course Brief History: 61 yo male who presents to the ED after a fall. He has been falling at home. He reports his legs give way and he starts to run to keep stable which eventual causes him to fall. He did fall on his face. In the ED he was noted to have several abrasions on his upper lip. He does reports some light headed and dizziness but denies any weakness or balance issues. ED provider noted that he was unsteady in his gait and felt it was unsafe to discharge him home. Diagnosis: Stroke: No - Discharge Data Discharge Date: 06/11/21 Discharge Disposition: Home, W Home Health Agency 06 Condition: Stable - Referral to Home Health Date of Face to Face Encounter: 06/11/21 Reason for Homebound Status: Kyler is homebound needing assistance from community transit to leave his house due to inability to drive and from unsteady gait. Primary Care Physician: Hamida Fitzgerald NP Skilled Need: Kyler is in need of halfway care to monitor medications and provide ADL cares at home. Also to help monitor nutrition. He is in need of PT to evaluate and treat due to gait instability and ataxia. He would also benefit from OT evaluate and treat to monitor ability to complete ADLs as well as home safety evaluation. - Discharge Diagnosis/Problem(s) (1) Ataxia SNOMED Code(s): 24861208 ICD Code: R27.0 - ATAXIA, UNSPECIFIED Status: Acute Current Visit: Yes (2) Cerebral atrophy SNOMED Code(s): 757708996 ICD Code: G31.9 - DEGENERATIVE DISEASE OF NERVOUS SYSTEM, UNSPECIFIED Status: Acute Current Visit: Yes (3) Dysmetria SNOMED Code(s): 51370079 ICD Code: R27.8 - OTHER LACK OF COORDINATION Status: Acute Current Visit: Yes (4) Hypertension SNOMED Code(s): 26020777 ICD Code: I10 - ESSENTIAL (PRIMARY) HYPERTENSION Status: Chronic Current Visit: Yes (5) Hyperlipidemia SNOMED Code(s): 11586982 ICD Code: E78.5 - HYPERLIPIDEMIA, UNSPECIFIED Status: Chronic Current Visit: Yes (6) Superficial abrasion SNOMED Code(s): 332424065 ICD Code: T14.8XXA - OTHER INJURY OF UNSPECIFIED BODY REGION, INITIAL ENCOUNTER Status: Acute Current Visit: Yes (7) Bipolar disorder SNOMED Code(s): 38054778 ICD Code: F31.9 - BIPOLAR DISORDER, UNSPECIFIED Status: Chronic Current Visit: Yes (8) B12 deficiency SNOMED Code(s): 655854259 ICD Code: E53.8 - DEFICIENCY OF OTHER SPECIFIED B GROUP VITAMINS Status: Acute Current Visit: Yes - Patient Summary/Data Consults: Consultations 06/08/21 23:01 PT Evaluation and Treatment [CONS] Routine 06/09/21 10:42 Consult to Physician [CONS] Routine 06/09/21 16:56 OT Evaluation and Treatment [CONS] Routine Hospital Course: Admission diagnoses Ataxia Dysmetria Discharge diagnoses Cerebellar atrophy Ataxia mildly improved Dysmetria improved B12 deficiency, mild Other PMH HTN HLD Bipolar Kyler was admitted secondary to increased falls and ataxia at home. Patient had fallen and received left facial abrasion on arrival to ER head CT and cervical spine CT were negative. Patient was monitored as he felt unsafe to return home as he has been falling more the last month. Brain MRI was obtained secondary to ataxia and dysmetria that was noted. This revealed mild global supratentorial cortical atrophy somewhat greater than expected for age with marked bilateral cerebellar hemisphere atrophic changes which can be associated with ataxia. Dr. Alcaraz, neurology, was consulted due to these findings. She consulted please see consultation note. B12 obtained which showed mild deficiency at 204 he was started on IM B12 supplementation while in the hospi reid. HIV negative. Other lab work remains pending at this time and this includes a vitamin e- paraneoplastic panel, ANNA, copper and MEGAN. Patient will have follow-up with Dr. Alcaraz to review these labs and further evaluate patient as outpatient. Ataxia could be secondary to antipsychotic medication that he is on but patient did improve mildly with physical therapy during his stay and has been ambulating without a walker and only standby assist doing well. Patient will continue to follow with [facility] for his psychiatric care. Patient will be discharged home today with home health with nursing care, PT and OT to evaluate and treat. No medication changes at this time but would warrant close monitoring. Patient will be sent home with B12 oral supplementation for now as B12 should be monitored for improvement in the next few weeks. Patient was offered halfway facility but declined this as he feels he can still manage at home. Patient counseled on safe ambulation and when to return to the ER clinic if concerns should arise. - Patient Instructions Diet: Regular Diet as Tolerated Activity: As Tolerated Driving: Do Not Drive Showering/Bathing: May Shower Notify Provider of: Fever, Increased Pain, Swelling and Redness, Drainage, Nausea and/or Vomiting - Discharge Plan *PRESCRIPTION DRUG MONITORING PROGRAM REVIEWED*: Not Applicable *COPY OF PRESCRIPTION DRUG MONITORING REPORT IN PATIENT CONOR: Not Applicable Prescriptions/Med Rec: Mecobalamin [B12 Active] 1,000 mcg PO DAILY #60 tab.chew Home Medications: Home Meds ARIPiprazole [Abilify] 15 mg PO DAILY 10/30/14 [History] Aspirin [Amelia Aspirin EC] 81 mg PO DAILY 10/30/14 [History] Benztropine Mesylate 1 mg PO BEDTIME 06/10/21 [History] Metoprolol Tartrate [Lopressor] 1 tab PO DAILY 06/10/21 [History] Vortioxetine Hydrobromide [Trintellix] 20 mg PO DAILY 06/10/21 [History] amLODIPine [Norvasc] 2.5 mg PO DAILY 06/10/21 [History] atorvaSTATin [Lipitor] 40 mg PO BEDTIME 06/10/21 [History] buPROPion HCL [Bupropion HCl Sr] 150 mg PO BID 06/10/21 [History] lisinopriL [Lisinopril] 20 mg PO DAILY 06/10/21 [History] Mecobalamin [B12 Active] 1,000 mcg PO DAILY #60 tab.chew 06/11/21 [Rx] Oxygen Therapy Mode: Room Air Patient Handouts: Vitamin B12 oral, Ataxia Referrals: Aishwarya Alcaraz MD [Physician] - Hamida Fitzgerald NP [Primary Care Provider] - 06/16/21 2:15 pm - Discharge Summary/Plan Comment DC Time >30 min.: No Total # of Minutes for Discharge Time: 25 - Patient Data Vitals - Most Recent: Last Vital Signs Temp 96.3 F L 06/11/21 09:00 Pulse 74 06/11/21 09:59 Resp 18 06/11/21 09:00 BP 124/74 06/11/21 09:59 Pulse Ox 96 06/11/21 09:00 Weight - Most Recent: 100.924 kg I&O - Last 24 hours: Intake & Output 06/10/21 06/11/2121 22:59 06:59 14:59 Intake Total 710 550 Output Total 410 650 Balance 300 -100 Lab Results - Last 24 hrs: Laboratory Results - last 24 hr 06/11/21 06/11/21 Range/Units 05:29 05:29 WBC 5.82 (4.0-11.0) K/uL RBC 4.40 L (4.50-5.90) M/uL Hgb 13.8 (13.0-17.0) g/dL Hct 41.4 (38.0-50.0) % MCV 94.1 (80.0-98.0) fL MCH 31.4 (27.0-32.0) pg MCHC 33.3 (31.0-37.0) g/dL RDW Std Deviation 45.7 (28.0-62.0) fl RDW Coeff of Marley 13 (11.0-15.0) % Plt Count 171 (150-400) K/uL MPV 12.50 H (7.40-12.00) fL Neut % (Auto) 54.8 (48.0-80.0) % Lymph % (Auto) 32.3 (16.0-40.0) % Wood % (Auto) 8.1 (0.0-15.0) % Eos % (Auto) 4.6 (0.0-7.0) % Baso % (Auto) 0.2 (0.0-1.5) % Neut # (Auto) 3.2 (1.4-5.7) K/uL Lymph # (Auto) 1.9 (0.6-2.4) K/uL Wood # (Auto) 0.5 (0.0-0.8) K/uL Eos # (Auto) 0.3 (0.0-0.7) K/uL Baso # (Auto) 0.0 (0.0-0.1) K/uL Nucleated RBC % 0.0 /100WBC Nucleated RBCs # 0 K/uL Sodium 143 (136-148) mmol/L Potassium 3.8 (3.5-5.1) mmol/L Chloride 106 (98-107) mmol/L Carbon Dioxide 28.3 (21.0-32.0) mmol/L BUN 25 H (7.0-18.0) mg/dL Creatinine 1.3 (0.8-1.3) mg/dL Est Cr Clr Drug Dosing 57.20 mL/min Estimated GFR (MDRD) 56.5 ml/min Glucose 82 (74-106) mg/dL Calcium 8.5 (8.5-10.1) mg/dL Magnesium 2.2 (1.8-2.4) mg/dL Med Orders - Current: Current Medications Acetaminophen (Acetaminophen 325 Mg Tab) 650 mg PO Q4H PRN PRN Reason: Pain (Mild 1-3)/fever Albuterol/Ipratropium (Albuterol/Ipratropium 3.0-0.5 Mg/3 Ml Neb Soln) 3 ml NEB Q4HRRT PRN PRN Reason: Shortness Of Breath/wheezing Amlodipine Besylate (Amlodipine 2.5 Mg Tab) 2.5 mg PO DAILY [facility] Last Admin: 06/11/21 09:59 Dose: 2.5 mg Documented by: Aripiprazole (Aripiprazole 10 Mg Tab) 15 mg PO DAILY [facility] Last Admin: 06/10/21 10:38 Dose: 15 mg Documented by: Aspirin (Aspirin 81 Mg Tab.Ec) 81 mg PO DAILY [facility] Last Admin: 06/11/21 09:59 Dose: 81 mg Documented by: Atorvastatin Calcium (Atorvastatin 40 Mg Tab) 40 mg PO BEDTIME [facility] Last Admin: 06/10/21 21:48 Dose: 40 mg Documented by: Benztropine Mesylate (Benztropine 1 Mg Tab) 1 mg PO BEDTIME [facility]UR[facility] Last Admin: 06/10/21 21:48 Dose: 1 mg Documented by: Bupropion HCl (Bupropion 150 Mg Tab.Sr) 150 mg PO BID [facility] Last Admin: 06/11/21 09:59 Dose: 150 mg Documented by: Cyanocobalamin (Cyanocobalamin (Vitamin B12) 1,000 Mcg/Ml Sd) 1,000 mcg IM DAILY [facility] Last Admin: 06/11/21 09:59 Dose: 1,000 mcg Documented by: Docusate Sodium (Docusate Sodium 100 Mg Cap) 100 mg PO BID PRN PRN Reason: Constipation Enoxaparin Sodium (Enoxaparin 40 Mg/0.4 Ml Syringe) 40 mg SUBCUT Q24H [facility] Last Admin: 06/10/21 17:18 Dose: 40 mg Documented by: Lisinopril (Lisinopril 10 Mg Tab) 20 mg PO DAILY [facility] Last Admin: 06/11/21 09:59 Dose: 20 mg Documented by: Metoprolol Tartrate (Metoprolol Tartrate 50 Mg Tab) 50 mg PO DAILY [facility] Last Admin: 06/11/21 09:59 Dose: 50 mg Documented by: Ondansetron HCl (Ondansetron 4 Mg/2 Ml Sdv) 4 mg IVPUSH Q4H PRN PRN Reason: Nausea Vortioxetine Hydrobromide [ Trintellix] 20 Mg Tablet 1 each PO DAILY [facility] Last Admin: 06/11/21 09:59 Dose: 1 each Documented by: Sodium Chloride (Sodium Chloride 0.9% 2.5 Ml Syringe) 2.5 ml FLUSH ASDIRECTED PRN PRN Reason: Keep Vein Open Discontinued Medications Diphtheria/Tetanus/Acell Pertussis (Diphtheria,Pertussis(Acell),Tetanus Vaccine 0.5 Ml Syringe) 0.5 ml IM .ONCE ONE Stop: 06/08/21 17:41 Last Admin: 06/08/21 18:23 Dose: 0.5 ml Documented by: Gadobenate Dimeglumine (Gadobenate Dimeglumine 529 Mg/Ml 20 Ml Sdv) 20 ml IVPUSH ONETIME STA Stop: 06/09/21 07:23 Last Admin: 06/09/21 07:23 Dose: 20 ml Documented by: Sodium Chloride (Normal Saline) 1,000 mls @ 999 mls/hr IV BOLUS ONE Stop: 06/08/21 18:39 Last Admin: 06/08/21 18:20 Dose: 999 mls/hr Documented by: Vortioxetine Hydrobromide [ Trintellix] 20 Mg Tablet 1 each PO DAILY [facility] Last Admin: 06/10/21 10:24 Dose: Not Given Documented by:
[2021-06-11] MEDS: ARIPiprazole 10 MG Tab PO SCH (11:55)
[2021-06-11 11:59] VITALS: BP 127/63; PULSE 68
== END 2021-06-11 13:00 | disposition home health service (06) | DRG 57 ==
LOC: MW.ED 17:16 → MW.MS 20:34
PROVIDERS: ADMIT Internal Medicine; ATTEND Internal Medicine
DX: G31.9 Degenerative disease of nervous system, unspecified (principal); R27.0 Ataxia, unspecified; W01.0XXA Fall on same level from slipping, tripping and stumbling without subsequent striking against object, initial encounter; Z91.81 History of falling; I10 Essential (primary) hypertension; E78.5 Hyperlipidemia, unspecified; F31.9 Bipolar disorder, unspecified; F32.9 Major depressive disorder, single episode, unspecified; Z20.822 Contact with and (suspected) exposure to COVID-19; S00.511A Abrasion of lip, initial encounter; E53.8 Deficiency of other specified B group vitamins; R29.6 Repeated falls; Z79.82 Long term (current) use of aspirin; Z79.899 Other long term (current) drug therapy; Z88.8 Allergy status to other drugs, medicaments and biological substances
CPT/HCPCS: 36415; 70450; 71045; 72125; 72170; 80053; 84484; 85025; 90471; 90715; 99285; J7030; U0002; 70553; 70553-26; 80048; 81001; 82164; 82525; 82607; 83519; 83520; 83735; 84446; 85027; 86256; 86341; 87389; 93005; 93010; 97110-GP; 97116-GP; 97162-GP; 97165-GO; 99284; A9270-GY; A9577; J1650; J3420

== ENCOUNTER 2021-07-18 12:32 | Emergency (ER) | payer MEDICARE ==
--- NOTE | 2021-07-18 14:32 | EDM.PDOCBH ---
ED HPI GENERAL MEDICAL PROBLEM - General Chief Complaint: Behavioral/Psych Stated Complaint: HALLUCINATIONS Time Seen by Provider: 07/18/21 14:08 Source of Information: Reports: Patient, Family, Old Records History Limitations: Reports: No Limitations - History of Present Illness INITIAL COMMENTS - FREE TEXT/NARRATIVE: HISTORY AND PHYSICAL: History of present illness: Patient is a 61-year-old male who presents to the emergency room with family member after [facility] having concern of patient being confused and reporting he can see bugs in his apartment. They reported he has been hallucinating over the past few weeks which is progressively gotten worse. They noted symptoms start after he had a steroid injection on 07/03/[address] Alcaraz. He is currently living in [facility], they wanted him medically evaluated to ensure he is okay to be staying with them. Patient is alert, oriented and answering questions appropriately. He states he is unsure why he is here in the emergency room but is agreeable for evaluation. Patient denies any fever, chills, headache, change in vision, syncope or near syncope. Denies any chest pain, back pain, shortness of breath or cough. Denies any GI or symptoms. Patient has been eating and drinking appropriately. No recent travel or sick contacts. Review of systems: As per history of present illness and below otherwise all systems reviewed and negative. Past medical history: As per history of present illness and as reviewed below otherwise noncontributory. Surgical history: As per history of present illness and as reviewed below otherwise noncontributory. Social history: See social history for further information Family history: As per history of present illness and as reviewed below otherwise noncontributory. Physical exam: General: Well developed and well nourished 61 year old male. Alert and orientated x 3. Nontoxic in appearance and in no acute distress. Vital signs are stable and have been reviewed by me. Nursing notes were reviewed. HEENT: Atraumatic, normocephalic, pupils equal and reactive bilaterally, negative for conjunctival pallor or scleral icterus, mucous membranes moist, TMs normal bilaterally, throat clear, neck supple, nontender, trachea midline. No drooling or trismus noted. No meningeal signs. No hot potato voice noted. Lungs: Clear to auscultation bilaterally. No wheezes, rales, or rhonchi. Chest nontender. Normal work of breathing, no accessory muscles used. Heart: S1S2, regular rate and rhythm without overt murmur, gallops, or rubs. No JVD. No peripheral edema Abdomen: Soft, nondistended, nontender. Normoactive bowel sounds. Negative for masses or costovertebral tenderness. C-spine/Back: No pinpoint vertebral tenderness upon palpation. No crepitus, step-offs or obvious deformities. Patient is ambulatory into the emergency room without difficulty or deficit. Able to rock back on heels and walk on toes. Denies any urinary or fecal incontinence. Denies any numbness, tingling or saddle paresthesia. No concerns of serious infection, fracture or cord compression, or cauda equina syndrome. Deep tendon reflexes brisk bilaterally. Skin: Intact, warm, dry. No lesions or rashes noted. Hematologic: No petechiae or purpra. Mucosa appropriate color and normal nail bed color and refill. Extremities: Atraumatic, moves all extremities per self without difficulty or deficits, uses front wheeled walker, negative for cords or calf pain. Neurovascular unremarkable. Neuro: Awake, alert, oriented. Cranial nerves II through XII unremarkable. C erebellum unremarkable. Motor and sensory unremarkable throughout. Exam nonfocal. Psychiatric: Mood and affect are appropriate. Normal thought process. Answering questions appropriately. Please note that the patient was seen and evaluated during the 2019 SARS-CoV-2 novel coronavirus pandemic period. Community viral transmission is ongoing at time of this encounter and the emergency department is operating under pandemic response procedures. Medical Decision Makin06/08/2021: Patient was admitted to the hospital for falls, altered coordination. MRI was done which demonstrates mild global supratentorial cortical atrophy somewhat greater than expected for age with marked bilateral cerebral hemisphere atrophic changes which can be associated with ataxia. This finding can be idiopathic in nature or associated with chronic antiseizure medication administration and/or longstanding alcohol abuse. Otherwise no acute intracranial abnormality is appreciated. It is noted that he is deficient in B12, vitamin E and copper. Has been seeing Dr Walden. [facility] stated he was receiving steroid injections, symptoms of confusion and hallucinations started shortly after that. Spoke with Elvira Cazares, his provider at [facility]. We reviewed all his results. Debora will continue to manage his psychiatric medications and adjust accordingly. He will return to their CRU unit. Patient's folic acid is low, will give him a prescription for once daily dosing and have him follow-up for repeat lab eval. I have talked with the patient about today's findings, in addition to providing specific details for plan of care. Reassessment at the time of disposition demonstrates that the patient is in no acute distress. Patient continues to be alert, oriented and answering questions appropriately. The patient is stable for discharge, counseling was provided and we discussed in great detail signs and symptoms that would prompt them to return to the Emergency Department. Medication, follow up and supportive care measures were reviewed and discussed. Voices understanding and is agreeable to plan of care. Denies any further questions or concerns at this time. Diagnostics: CBC, CMP, EtOH, magnesium, TSH, urine, urine drug screen, head CT, chest x-ray Therapeutics: None Prescription: Folic acid 1 mg Impression: Folic Acid (Vit B9) deficiency Encounter for medical evaluation Confusion Plan: 1. You were evaluated today on an emergent basis. Labs including CBC, CMP, Vitamin B12, TSH, Magnesium, ETOH, urine, and urine drug screen are appropriate. Your Folic acid (Vitamin B9) is low; prescribed supplementation. Please have this rechecked in a month. Head CT is normal. Chest x-ray is normal. 2. You can alternate Tylenol and ibuprofen as needed for pain and fever management. 3. We encourage you to follow up with your primary care provider and/or recommended specialist in the next few days for re-evaluation and further care/management. 4. If your symptoms should worsen, new symptoms develop or any of the signs and symptoms we discussed should arise please return to the emergency room or call 911 (if needed). Definitive disposition and diagnosis as appropriate pending reevaluation and review of above. - Related Data Allergies Allergy/AdvReac Type Severity Reaction Status Date / Time phenytoin sodium Allergy Unknown Verified 07/18/21 13:54 [From Dilantin] Home Meds: Home Meds ARIPiprazole [Abilify] 15 mg PO DAILY 10/30/14 [History] Metoprolol Tartrate [Lopressor] 50 mg PO DAILY 06/10/21 [History] Vortioxetine Hydrobromide [Trintellix] 20 mg PO DAILY 06/10/21 [History] amLODIPine [Norvasc] 2.5 mg PO BEDTIME 06/10/21 [History] atorvaSTATin [Lipitor] 40 mg PO BEDTIME 06/10/21 [History] buPROPion HCL [Bupropion HCl Sr] 150 mg PO BID 06/10/21 [History] lisinopriL [Lisinopril] 20 mg PO BEDTIME 06/10/21 [History] ARIPiprazole [Abilify] 15 mg PO BEDTIME 07/18/21 [History] Aspirin [Aspirin EC] 81 mg PO DAILY 07/18/21 [History] Cyanocobalamin (Vitamin B-12) [Vitamin B-12] 1,000 mcg PO DAILY 07/18/21 [History] Folic Acid 1 mg PO DAILY 30 Days #30 tablet 07/18/21 [Rx] Nitroglycerin 0.4 mg SL .Q5 MIN PRN MDD 3 TABLETS 07/18/21 [History] risperiDONE [Risperdal] 1.5 mg PO BID 07/18/21 [History] Past Medical History HEENT History: Reports: None Cardiovascular History: Reports: None Respiratory History: Reports: None Gastrointestinal History: Reports: None Genitourinary History: Reports: None Musculoskeletal History: Reports: None Neurological History: Reports: None Psychiatric History: Reports: Depression Endocrine/Metabolic History: Reports: None Insulin Pump Model and Respiratory Scientist: None Hematologic History: Reports: None Immunologic History: Reports: None Oncologic (Cancer) History: Reports: None Dermatologic History: Reports: None - Infectious Disease History Infectious Disease History: Reports: Chicken Pox, Measles - Past Surgical History Head Surgeries/Procedures: Reports: None Social & Family History - Caffeine Use Caffeine Use: Reports: None ED ROS GENERAL - Review of Systems Review Of Systems: Comprehensive ROS is negative, except as noted in HPI. ED EXAM, BEHAVIORAL HEALTH - Physical Exam Exam: See Below (See dictation) COURSE, BEHAVIORAL HEALTH COMP - Course Vital Signs: Last Vital Signs Temp 97.6 F 07/18/21 13:54 Pulse 71 07/18/21 16:07 Resp 18 07/18/21 16:07 BP 114/37 L 07/18/21 16:07 Pulse Ox 98 07/18/21 16:07 Orders, Labs, Meds: Laboratory Tests 07/18/21 07/18/21 07/18/21 Range/Units 14:30 14:30 16:45 WBC 5.89 (4.0-11.0) K/uL RBC 3.93 L (4.50-5.90) M/uL Hgb 12.2 L (13.0-17.0) g/dL Hct 37.6 L (38.0-50.0) % MCV 95.7 (80.0-98.0) fL MCH 31.0 (27.0-32.0) pg MCHC 32.4 (31.0-37.0) g/dL RDW Std Deviation 47.4 (28.0-62.0) fl RDW Coeff of Marley 14 (11.0-15.0) % Plt Count 143 L (150-400) K/uL MPV 11.60 (7.40-12.00) fL Neut % (Auto) 70.1 (48.0-80.0) % Lymph % (Auto) 20.7 (16.0-40.0) % [place] % (Auto) 6.5 (0.0-15.0) % Eos % (Auto) 2.4 (0.0-7.0) % Baso % (Auto) 0.3 (0.0-1.5) % Neut # (Auto) 4.1 (1.4-5.7) K/uL Lymph # (Auto) 1.2 (0.6-2.4) K/uL [place] # (Auto) 0.4 (0.0-0.8) K/uL Eos # (Auto) 0.1 (0.0-0.7) K/uL Baso # (Auto) 0.0 (0.0-0.1) K/uL Nucleated RBC % 0.0 /100WBC Nucleated RBCs # 0 K/uL Sodium 146 (136-148) mmol/L Potassium 3.9 (3.5-5.1) mmol/L Chloride 109 H (98-107) mmol/L Carbon Dioxide 29.0 (21.0-32.0) mmol/L BUN 20 H (7.0-18.0) mg/dL Creatinine 1.4 H (0.8-1.3) mg/dL Est Cr Clr Drug Dosing 53.12 mL/min Estimated GFR (MDRD) 51.9 ml/min Glucose 97 (74-106) mg/dL Calcium 7.9 L (8.5-10.1) mg/dL Magnesium 2.2 (1.8-2.4) mg/dL Total Bilirubin 0.6 (0.2-1.0) mg/dL AST 24 (15-37) IU/L ALT 23 (14-63) IU/L Alkaline Phosphatase 50 (46-116) U/L Total Protein 5.7 L (6.4-8.2) g/dL Albumin 2.9 L (3.4-5.0) g/dL Globulin 2.8 (2.6-4.0) g/dL Albumin/Globulin Ratio 1.0 (0.9-1.6) Vitamin B12 1188 H (193-986) pg/mL Folate 6.20 L (8.60-58.90) ng/mL TSH, Ultra Sensitive 1.48 (0.36-3.74) uIU/mL Urine Color YELLOW Urine Appearance CLEAR Urine pH 6.0 (5.0-8.0) Ur Specific [place] 1.025 (1.001-1.035) Urine Protein NEGATIVE (NEGATIVE) mg/dL Urine Glucose (UA) NEGATIVE (NEGATIVE) mg/dL Urine Ketones NEGATIVE (NEGATIVE) mg/dL Urine Occult Blood NEGATIVE (NEGATIVE) Urine Nitrite NEGATIVE (NEGATIVE) Urine Bilirubin NEGATIVE (NEGATIVE) Urine Urobilinogen 0.2 (<2.0) EU/dL Ur Leukocyte Esterase NEGATIVE (NEGATIVE) Urine Opiates Screen (NEGATIVE) Ur Oxycodone Screen (NEGATIVE) Urine Methadone Screen (NEGATIVE) Ur Barbiturates Screen (NEGATIVE) Ur Phencyclidine Scrn (NEGATIVE) Ur Amphetamine Screen (NEGATIVE) U Methamphetamines Scrn (NEGATIVE) U Benzodiazepines Scrn (NEGATIVE) U Cocaine Metab Screen (NEGATIVE) U Marijuana (THC) Screen (NEGATIVE) Ethyl Alcohol < 3.0 mg/dL 07/18/21 Range/Units 16:45 WBC (4.0-11.0) K/uL RBC (4.50-5.90) M/uL Hgb (13.0-17.0) g/dL Hct (38.0-50.0) % MCV (80.0-98.0) fL MCH (27.0-32.0) pg MCHC (31.0-37.0) g/dL RDW Std Deviation (28.0-62.0) fl RDW Coeff of Marley (11.0-15.0) % Plt Count (150-400) K/uL MPV (7.40-12.00) fL Neut % (Auto) (48.0-80.0) % Lymph % (Auto) (16.0-40.0) % [place] % (Auto) (0.0-15.0) % Eos % (Auto) (0.0-7.0) % Baso % (Auto) (0.0-1.5) % Neut # (Auto) (1.4-5.7) K/uL Lymph # (Auto) (0.6-2.4) K/uL [place] # (Auto) (0.0-0.8) K/uL Eos # (Auto) (0.0-0.7) K/uL Baso # (Auto) (0.0-0.1) K/uL Nucleated RBC % /100WBC Nucleated RBCs # K/uL Sodium (136-148) mmol/L Potassium (3.5-5.1) mmol/L Chloride (98-107) mmol/L Carbon Dioxide (21.0-32.0) mmol/L BUN (7.0-18.0) mg/dL Creatinine (0.8-1.3) mg/dL Est Cr Clr Drug Dosing mL/min Estimated GFR (MDRD) ml/min Glucose (74-106) mg/dL Calcium (8.5-10.1) mg/dL Magnesium (1.8-2.4) mg/dL Total Bilirubin (0.2-1.0) mg/dL AST (15-37) IU/L ALT (14-63) IU/L Alkaline Phosphatase (46-116) U/L Total Protein (6.4-8.2) g/dL Albumin (3.4-5.0) g/dL Globulin (2.6-4.0) g/dL Albumin/Globulin Ratio (0.9-1.6) Vitamin B12 (193-986) pg/mL Folate (8.60-58.90) ng/mL TSH, Ultra Sensitive (0.36-3.74) uIU/mL Urine Color Urine Appearance Urine pH (5.0-8.0) Ur Specific [place] (1.001-1.035) Urine Protein (NEGATIVE) mg/dL Urine Glucose (UA) (NEGATIVE) mg/dL Urine Ketones (NEGATIVE) mg/dL Urine Occult Blood (NEGATIVE) Urine Nitrite (NEGATIVE) Urine Bilirubin (NEGATIVE) Urine Urobilinogen (<2.0) EU/dL Ur Leukocyte Esterase (NEGATIVE) Urine Opiates Screen NEGATIVE (NEGATIVE) Ur Oxycodone Screen NEGATIVE (NEGATIVE) Urine Methadone Screen NEGATIVE (NEGATIVE) Ur Barbiturates Screen NEGATIVE (NEGATIVE) Ur Phencyclidine Scrn NEGATIVE (NEGATIVE) Ur Amphetamine Screen NEGATIVE (NEGATIVE) U Methamphetamines Scrn NEGATIVE (NEGATIVE) U Benzodiazepines Scrn NEGATIVE (NEGATIVE) U Cocaine Metab Screen NEGATIVE (NEGATIVE) U Marijuana (THC) Screen NEGATIVE (NEGATIVE) Ethyl Alcohol mg/dL Departure - Departure Time of Disposition: 17:21 Disposition: Home, Self-Care 01 Clinical Impression: Confusion, Encounter for medical screening examination Folic acid deficiency anemia Qualifiers: Folate deficiency anemia type: unspecified folate deficiency Qualified Code(s): D52.9 - Folate deficiency anemia, unspecified - Discharge Information Prescriptions: Folic Acid 1 mg PO DAILY 30 Days #30 tablet Referrals: Hamida Fitzgerald NP [Primary Care Provider] - Forms: ED Department Discharge Additional Instructions: The following information is given to patients seen in the emergency department who are being discharged to home. This information is to outline your options for follow-up care. We provide all patients seen in our emergency department with a follow-up referral. The need for follow-up, as well as the timing and circumstances, are variable depending upon the specifics of your emergency department visit. If you don't have a primary care physician on staff, we will provide you with a referral. We always advise you to contact your personal physician following an emergency department visit to inform them of the circumstance of the visit and for follow-up with them and/or the need for any referrals to a consulting specialist. The emergency department will also refer you to a specialist when appropriate. This referral assures that you have the opportunity for follow-up care with a specialist. All of these measure are taken in an effort to provide you with optimal care, which includes your follow-up. Under all circumstances we always encourage you to contact your private physician who remains a resource for coordinating your care. When calling for follow-up care, please make the office aware that this follow-up is from your recent emergency room visit. If for any reason you are refused follow-up, please contact the Emergency Department at and asked to speak to the emergency department charge nurse. Primary Care [address] [place] [address] [facility] [address] [place] [id number] Thank you for choosing the [facility] emergency department in [place] for your medical needs today. It was a pleasure caring for you. Today you were seen in the emergency department for confusion. 1. You were evaluated today on an emergent basis. Labs including CBC, CMP, Vitamin B12, TSH, Magnesium, ETOH, urine, and urine drug screen are appropriate. Your Folic acid (Vitamin B9) is low; prescribed supplementation. Please have this rechecked in a month. Head CT is normal. Chest x-ray is normal. 2. You can alternate Tylenol and ibuprofen as needed for pain and fever management. 3. We encourage you to follow up with your primary care provider and/or recommended specialist in the next few days for re-evaluation and further care/management. 4. If your symptoms should worsen, new symptoms develop or any of the signs and symptoms we discussed should arise please return to the emergency room or call 911 (if needed). Sepsis Event Note (ED) - Evaluation Sepsis Screening Result: No Definite Risk - Focused Exam Vital Signs: Vital Signs Temp Pulse Resp BP Pulse Ox 07/18/21 16:07 71 18 114/37 L 98 07/18/21 13:54 97.6 F 74 18 108/59 L 96
--- NOTE | 2021-07-18 14:34 | CR ---
INDICATION: Confusion TECHNIQUE: Chest 1 view. COMPARISON: 06/08/21 FINDINGS: Cardiovascular and mediastinum: Heart size and vasculature are normal in caliber and appearance. Mediastinum is within normal limits. Lungs and pleural space: Lungs are clear. No sign of infiltrate or mass. No sign of pleural effusion. No pneumothorax. Bones and soft tissues: No significant findings. IMPRESSION: Unremarkable chest. Dictated by: Tim Tsang MD @ 07/18/2021 14:34:27 (Electronically Signed)
--- NOTE | 2021-07-18 14:57 | PCM.EKG ---
#1 Interpretation EKG Date: 07/18/21 Time: 14:49 Rhythm: NSR Rate (Beats/Min): 70 [place]: Normal P-Wave: Present QRS: Normal ST-T: Normal (TWI III and V2-V3 unchaged) QT: Normal Comparison: No Change (06/08/21) EKG Interpretation Comments: Sinus Rhythm with nonspecific T wave inversions
[2021-07-18 15:32] LABS: BLOOD UREA NITROGEN,BUN 20 mg/dL (7.0-18.0); CHLORIDE,CL 109 mmol/L (98-107); GLUCOSE RANDOM 97 mg/dL (74-106); POTASSIUM,K 3.9 mmol/L (3.5-5.1); SODIUM,NA 146 mmol/L (136-148)
--- NOTE | 2021-07-18 16:13 | CT ---
INDICATION: Confusion TECHNIQUE: CT head without contrast. COMPARISON: 06/08/2021 FINDINGS: CSF spaces: Within normal limits for age. Brain parenchyma: The pennington-white differentiation is normal. No sign of mass, hemorrhage, or midline shift. Skull base and calvarium: The visualized paranasal sinuses and mastoid air cells demonstrate no acute or significant findings. The visualized orbits are grossly unremarkable. No skull fractures. IMPRESSION: Unremarkable noncontrast head CT. Please note that all CT scans at this facility use dose modulation, iterative reconstruction, and/or weight-based dosing when appropriate to reduce radiation dose to as low as reasonably achievable. Dictated by Tim Tsang MD @ 07/18/2021 4:12:12 PM (Electronically Signed)
[2021-07-18 17:48] VITALS: BP 106/62; PULSE 76
== END 2021-07-18 18:17 | disposition home or self-care (01) ==
LOC: MW.ED 12:32
DX: R41.0 Disorientation, unspecified (principal); D52.9 Folate deficiency anemia, unspecified; Z88.8 Allergy status to other drugs, medicaments and biological substances; Z79.82 Long term (current) use of aspirin; Z79.899 Other long term (current) drug therapy
CPT/HCPCS: 36415; 70450; 70450-26; 71045; 71045-26; 80053; 80305-QW; 80307; 81003; 82607; 82746; 83735; 84443; 85025; 93005; 99285-25

== ENCOUNTER 2021-07-18 21:19 | Emergency (ER) | payer MEDICARE ==
[2021-07-19 00:05] VITALS: BP 104/57
[2021-07-19 00:15] VITALS: PULSE 79
--- NOTE | 2021-07-19 00:35 | EDM.PDOC ---
ED HPI GENERAL MEDICAL PROBLEM - General Chief Complaint: Behavioral/Psych Stated Complaint: HALLUCINATIONS Time Seen by Provider: 07/18/21 21:29 - History of Present Illness INITIAL COMMENTS - FREE TEXT/NARRATIVE: CHIEF COMPLAINT(S): Hallucinations HISTORY OF PRESENT ILLNESS: This is a 61-year-old man and with a past medical history of bilateral cerebellar hemispheric atrophy with ataxia, vitamin B-12 deficiency and folic acid deficiency with a prior history of hypertension, hyperlipidemia, and bipolar disorder who comes to the emergency department with a chief complaint of hallucinations. This is the second visit to the emergency department today. He was discharged into [facility] CRU unit however they sent him back due to hallucinations, paranoia and inability to care for him. They stated that tonight the patient refused to eat and and saying that there were snakes and spiders everywhere. They state that he was trying to smash them with his walker and tried running even though he has difficulty with walking. They state that he has had increased paranoia, visual hallucination and auditory hallucination. They state that he is a danger to himself because of this. They state that they have had some recent medication changes but they do not know which ones were changed. The patient currently denies any symptoms but does reiterate the story above. REVIEW OF SYSTEMS: Constitutional: Denies fever, chills. Eyes: Denies eye pain Ears, Nose, Mouth, & Throat: Denies earache Cardiovascular: Denies chest pain Respiratory: Denies shortness of breath Gastrointestinal: Denies Nausea, vomiting, diarrhea, hematochezia. Genitourinary: Denies hematuria Skin:Denies a rash MSK: Denies joint pain Neurological: Denies blurred vision Psychiatric: Positive for bipolar disorder, auditory hallucination, visual hallucination. Denies suicidal ideation, homicidal ideation PAST MEDICAL HISTORY: As per history of present illness and as reviewed below otherwise noncontributory. SURGICAL HISTORY: As per history of present illness and as reviewed below otherwise noncontributory. SOCIAL HISTORY: As per history of present illness and as reviewed below otherwise noncontributory. FAMILY HISTORY: As per history of present illness and as reviewed below otherwise noncontributory. EXAMINATION OF ORGAN SYSTEMS/BODY AREAS: Constitutional: Blood pressure is 107/55, heart rate 92, respiratory rate 14 with an oxygen saturation of 94 to 95% on room air. Temperature 35.9 temporally General: Well-appearing man who is in no acute distress Psychiatric: Appears to be responding to internal stimuli. Patient is not agitated and cooperative. Positive auditory and visual hallucination. Denies suicidal ideation, homicidal ideation Eyes: No scleral icterus or conjunctival erythema pupils equal round reactive to light. Extraocular movements intact. No vertical or horizontal nystagmus. ENMT: Moist mucous membranes. No pharyngeal erythema Cardiovascular: Regular, rate, and rhythm. No gallops, murmurs, or rubs. Bilateral upper extremity pulses symmetric and intact. No peripheral edema. No JVD. Respiratory: Lungs clear to auscultation bilaterally. No wheezes, rales, or rhonchi. Gastrointestinal: Soft, non-tender, non-distended. Normoactive bowel sounds Genitourinary: No suprapubic tenderness Musculoskeletal: Normal range of motion. Skin: No lesions or abrasions. Neurological: Alert, GCS 15 MEDICAL DECISION MAKING AND COURSE IN THE ED WITH INTERPRETATION/REVIEW OF DIAGNOSTIC STUDIES: This is a 61-year-old man with a past medical history of bilateral cerebellar atrophy with ataxia and bipolar disorder who comes to the emergency department with acute psychosis secondary to auditory and visual hallucination with increased paranoia who has stable vitals. The patient did have laboratory work-up today for medical clearance and was sent back to [place]. I do not believe repeat labs are indicated. Will obtain a Covid swab. Laboratory analysis from earlier revealed normal CBC with some mild thrombocytopenia at 143 which is unchanged from prior. CMP revealed hyperchloremia 109, elevated BUN at 20 and a creatinine of 1.4 which is around the patient's baseline. Hypocalcemia at 7.9 TSH was normal at 1.48. Liver function was normal. Vitamin B12 level is 1188 and folic acid level was 6.20. Urinalysis, urine drug screen and serum drug screen were negative. Covid was negative. At this time I did have a discussion with the patient and his brother at bedside. At this time given the concern at [facility] and given his hallucinations he does need medication management for his acute psychosis. I did discuss I had like to transfer him for admission. He was amenable to this plan. I contacted [facility] in [place] and spoke with Dr. Atwood who accepted the patient for admission. At this time there are no ambulances or air transport to transport this patient. Therefore his sister was amenable to transporting this patient to [facility] in [place]. I do believe the patient is able to be transferred via this method. I did speak to Dr. Daniels who is the emergency physician and is aware that the patient is in transport. DISPOSITION: The patient was transferred to [facility] in [place] in stable condition. CONDITION: fair PROCEDURES: None FINAL IMPRESSION(S)/DIAGNOSES: 1. Acute paranoid hallucinations/psychosis Jamey Jack M.D. - Related Data Allergies Allergy/AdvReac Type Severity Reaction Status Date / Time phenytoin sodium Allergy Unknown Verified 07/18/21 21:44 [From Dilantin] Home Meds: Home Meds ARIPiprazole [Abilify] 15 mg PO DAILY 10/30/14 [History] Metoprolol Tartrate [Lopressor] 50 mg PO DAILY 06/10/21 [History] Vortioxetine Hydrobromide [Trintellix] 20 mg PO DAILY 06/10/21 [History] amLODIPine [Norvasc] 2.5 mg PO BEDTIME 06/10/21 [History] atorvaSTATin [Lipitor] 40 mg PO BEDTIME 06/10/21 [History] buPROPion HCL [Bupropion HCl Sr] 150 mg PO BID 06/10/21 [History] lisinopriL [Lisinopril] 20 mg PO BEDTIME 06/10/21 [History] ARIPiprazole [Abilify] 15 mg PO BEDTIME 07/18/21 [History] Aspirin [Aspirin EC] 81 mg PO DAILY 07/18/21 [History] Cyanocobalamin (Vitamin B-12) [Vitamin B-12] 1,000 mcg PO DAILY 07/18/21 [History] Folic Acid 1 mg PO DAILY 30 Days #30 tablet 07/18/21 [Rx] Nitroglycerin 0.4 mg SL .Q5 MIN PRN MDD 3 TABLETS 07/18/21 [History] risperiDONE [Risperdal] 1.5 mg PO BID 07/18/21 [History] Past Medical History HEENT History: Reports: None Cardiovascular History: Reports: None Respiratory History: Reports: None Gastrointestinal History: Reports: None Genitourinary History: Reports: None Musculoskeletal History: Reports: None Neurological History: Reports: None Psychiatric History: Reports: Depression Endocrine/Metabolic History: Reports: None Insulin Pump Model and Composition Teacher: None Hematologic History: Reports: None Immunologic History: Reports: None Oncologic (Cancer) History: Reports: None Dermatologic History: Reports: None - Infectious Disease History Infectious Disease History: Reports: Chicken Pox, Measles - Past Surgical History Head Surgeries/Procedures: Reports: None Social & Family History - Family History Family Medical History: No Pertinent Family History - Tobacco Use Tobacco Use Status *Q: Never Tobacco User - Caffeine Use Caffeine Use: Reports: None - Recreational Drug Use Recreational Drug Use: No ED ROS GENERAL - Review of Systems Review Of Systems: See Below ED EXAM, GENERAL - Physical Exam Exam: See Below Course - Vital Signs Last Recorded V/S: Last Vital Signs Temp 35.9 C L 07/18/21 21:20 Pulse 79 07/19/21 00:15 Resp 18 07/19/21 00:15 BP 104/57 L 07/19/21 00:15 Pulse Ox 93 L 07/19/21 00:15 - Orders/Labs/Meds Labs: Laboratory Tests 07/18/21 Range/Units 23:10 SARS-CoV-2 RNA (МАРИЯ) NEGATIVE (NEGATIVE) Departure - Departure Time of Disposition: 00:34 Disposition: DC/Tfer to Psych Hosp/Unit [facility] Condition: Fair Clinical Impression: Bipolar disorder, Hallucinations - Discharge Information Referrals: PCP,None [Primary Care Provider] - Sepsis Event Note (ED) - Focused Exam Vital Signs: Vital Signs Temp Pulse Resp BP Pulse Ox 07/19/21 00:15 79 18 104/57 L 93 L 07/19/21 00:04 77 14 104/57 L 95 07/18/21 21:20 35.9 C L 92 14 107/55 L 94 L
== END 2021-07-19 00:43 ==
LOC: MW.ED 21:19
DX: F22 Delusional disorders (principal); F31.9 Bipolar disorder, unspecified; Z88.8 Allergy status to other drugs, medicaments and biological substances; Z20.822 Contact with and (suspected) exposure to COVID-19; Z79.899 Other long term (current) drug therapy; R41.0 Disorientation, unspecified; D52.9 Folate deficiency anemia, unspecified; Z79.82 Long term (current) use of aspirin
CPT/HCPCS: 36415; 70450; 71045; 80053; 80305; 80307; 81003; 82607; 82746; 83735; 84443; 85025; 93005; 99285; U0002